=== PATIENT | female | born 1980 | race Two or more races ===

== ENCOUNTER 2024-08-03 13:36 | Inpatient (IN) | payer BC, OTHER ==
[~2024-08-03] VITALS: Ht 157.5 cm; Wt 103.0 kg
[2024-08-03 14:22] LABS: Basophils # (auto) 0.1 10 ^3/uL (0-0.2); Lymphocytes # (auto) 3.2 10 ^3/uL (0.4-5.4); Mean Corpuscular Volume 82.3 fL (80.0-100.0); Red Cell Distribution Width 16.6 % (11.8-14.3)
[2024-08-03 14:24] LABS: Basophils % (auto) 0.4 % (0.0-2.0); Eosinophils # (auto) 0.4 10 ^3/uL (0-0.8); Eosinophils % (auto) 2.5 % (0.0-7.0); Hematocrit 41.7 % (36.0-46.0); Hemoglobin 13.4 g/dL (12.2-16.2); Lymphocytes % (auto) 21.4 % (10.0-50.0); Mean Corpuscular Hemoglobin 26.3 pg (28.0-32.0); Monocytes # (auto) 0.8 10 ^3/uL (0-1.3); Monocytes % (auto) 5.3 % (0.0-12.0); Neutrophils # (auto) 10.5 10 ^3/uL (1.6-8.6); Neutrophils % (auto) 70.4 % (37.0-80.0); Platelet Count (auto) 347 10^3/uL (140-450); Red Blood Cells 5.07 10^6/uL (4.0-5.20)
[2024-08-03 14:40] LABS: Alanine Aminotransferase 13 U/L (7-40); Albumin 4.5 g/dL (3.2-4.8); Alkaline Phosphatase 87 U/L (46-116); Anion Gap 8 (5-15); BUN/Creatinine Ratio 7.4 (10.0-20.0); Calcium 10.2 mg/dL (8.7-10.4); Carbon Dioxide 28 mmol/L (20-31); Chloride 107 mmol/L (98-107); Glucose 93 mg/dL (74-106); Potassium 3.7 mmol/L (3.5-5.1); Sodium 143 mmol/L (136-145)
[2024-08-03 14:41] LABS: Bilirubin, Total 0.3 mg/dL (0.2-1.0); Total Protein 7.3 g/dL (5.7-8.2)
[2024-08-03 14:42] LABS: Aspartate Aminotransferase 10 U/L (13-40); Blood Urea Nitrogen 7 mg/dL (9-23)
--- NOTE | 2024-08-03 15:09 | ED.PDOC ---
GI ASSESSMENT HPI Comments A 44 YEAR OLD FEMALE PRESENTS TO THE ED WITH COMPLAINT OF GENERALIZED ABDOMINAL PAIN. PATIENT STATES SHE HAS BEEN EXPERIENCING GENERALIZED ABDOMINAL PAIN THAT RADIATES TO HER LOWER BACK WITH NAUSEA AND VOMITING FOR THE PAST 3 WEEKS. PATIENT NOTES SHE WENT TO A HOSPITAL IN [place] 3 WEEKS AGO FOR THIS COMPLAINT WHERE THEY DID A CT SCAN AND LABS AND WAS ADMITTED FOR "AN INFLAMMATORY DISEASE". PATIENT REPORTS SHE IS STILL EXPERIENCING ABDOMINAL PAIN AT THIS TIME AN WOULD LIKE TO BE EVALUATED AGAIN. NAUSEA AND VOMITING STOPPED AT THIS TIME. PATIENT DENIES DYSURIA, HEMATURIA, FLANK PAIN, FEVER, CHILLS, SHORTNESS OF BREATH, CHEST PAIN, NAUSEA, VOMITING, HEADACHE, OR OTHER COMPLAINTS. NO OTHER SYMPTOMS OR MODIFYING FACTORS AT THIS TIME. PATIENT IS ALERT, ORIENTED X 4, AND HAS STEADY GAIT. Chief Complaint: Abdominal Pain Time Seen by MD: 13:44 Reviewed Notes: Nurses Notes, Medications, Allergies Allergies: Coded Allergies: NO KNOWN ALLERGIES (Unverified , 08/03/24) Information Source: Patient Mode of Arrival: Ambulatory Timing: Weeks Duration: Intermittent Prehospital treatment: None Quality: Aching, Cramping Vomitus: None Stool: Normal Severity: Moderate Recent: None Recent Hx of: None Pain Location: Diffuse Modifying Factors: Nothing Associated sign and symptoms: Nausea, Vomiting, Abdominal Pain Past Medical History PAST MEDICAL HISTORY: Anemia, DM, High Lipids, HTN, Seizures Surgical History: Cholecystectomy MEDIA SPECIALIST History: No Pertinent MEDIA SPECIALIST History Family History Family History: Reviewed,noncontributory to illness Social History Smoker: Non-Smoker Alcohol: Denies ETOH Use Drugs: Denies Drug Use Lives In: Home Constitutional: denies: chills, diaphoresis, fatigue, fever, malaise, sweats, weakness, others EENTM: denies: blurred vision, double vision, ear bleeding, ear discharge, ear drainage, ear pain, ear ringing, eye pain, eye redness, hearing loss, mouth pain, mouth swelling, nasal discharge, nose bleeding, nose congestion, nose pain, photophobia, tearing, throat pain, throat swelling, voice changes, others Respiratory: denies: cough, hemoptysis, orthopnea, SOB at rest, shortness of breath, SOB with excertion, stridor, wheezing, others Cardiovascular: denies: chest pain, dizzy spells, diaphoresis, Dyspnea on exertion, edema, irregular heart beat, left arm pain, lightheadedness, palpitations, PND, syncope, others Gastrointestinal: reports: abdominal pain, nausea, vomiting; denies: abdomen distended, blood streaked bowels, constipated, diarrhea, dysphagia, difficulty swallowing, hematemesis, melena, poor appetite, poor fluid intake, rectal bleeding, rectal pain, others Genitourinary: denies: abnormal vagina bleeding, burning, dyspareunia, dysuria, flank pain, frequency, hematuria, incontinence, pain, , vagina discharge, urgency, others Neurological: denies: dizziness, fainting, headache, left sided numbness, left sided weakness, numbness, paresthesia, pre-existing deficit, right sided numbness, right sided weakness, seizure, speech problems, tingling, tremors, weakness, others Musculoskeletal: reports: back pain (LOWER BACK PAIN); denies: gout, joint pain, joint swelling, muscle pain, muscle stiffness, neck pain, others Integumetry: denies: bruises, change in color, change in hair/nails, dryness, laceration, lesions, lumps, rash, wounds, others Allergic/Immunocompromised: denies: Difficulty Healing, Frequent Infections, Hives, Itching, others Hematologic/Lymphatic: denies: anemia, blood clots, easy bleeding, easy bruising, swollen glands, others Endocrine: denies: excessive hunger, excessive sweating, excessive thirst, excessive urination, flushing, intolerance to cold, intolerance to heat, unexplained weight gain, unexplained weight loss, others Psychiatric: denies: anxiety, bipolar disorder, depression, hopeless, panic disorder, schizophrenia, sleepless, suicidal, others All Other Systems: Reviewed and Negative Physical Exam General Appearance: No Apparent Distress, Normal HEENT: Normal ENT Inspection, PERRL/EOMI, Pharynx Normal, TMs Normal Neck: Full Range of Motion, Non-Tender, Normal, Normal Inspection Respiratory: Chest Non-Tender, Lungs Clear, No Accessory Muscle Use, No Respiratory Distress, Normal Breath Sounds Cardiovascular: No Edema, No JVD, No Murmur, No Gallop, Normal Peripheral Pulses, Regular Rate/Rhythm Breast Exam: Deferred Gastrointestinal: Diffuse, Distended, Guarding, No Organomegaly, No Pulsatile Mass, Soft, Tenderness (AND MILD DISTENDED GENERAL ABD, WITH TENDERNESS AND GUARDING, NO REBOUND TENDERNESS. ) Genitalia: Deferred Pelvic: Deferred Rectal: Deferred Extremities: No calf tenderness, Normal capillary refill, Normal inspection, Normal range of motion, Non-tender, No pedal edema Musculoskeletal : Apperance: Normal Neurologic: Alert, principal database developer II-XII nml as Tested, No Motor Deficits, Normal Affect, Normal Mood, No Sensory Deficits Cerebellar Function: Normal Reflexes: Normal Skin: Dry, Normal Color, Warm Peripheral Pulses: 2+ carotid (R), 2+ carotid (L) Lymphatic: No Adenopathy Was a procedure done? Was a procedure done?: No GI differential Dx Differential Diagnosis: Appendicitis, Bowel Obstruction, Constipation, Diverticular disease, Gastritis/PUD, Pancreatitis, UTI, Kidney Stone X-Ray, Labs, Meds, VS Vital Signs Date Time Temp Pulse Resp B/P (MAP) Pulse Ox O2 Delivery O2 Flow Rate FiO2 08/03/24 15:42 76 16 154/76 (102) 96 08/03/24 15:41 76 18 154/76 08/03/24 15:10 98.5 85 17 179/101 (127) 96 98.5 08/03/24 15:10 85 17 96 Room Air 08/03/24 14:44 98.5 85 17 177/90 (119) 96 Lab Test 08/03/24 14:40 08/03/24 13:54 Range/Units Urine Color Yellow Yellow Urine Clarity Clear Clear Urine pH 5.5 5.0-9.0 Urine Specific [place] 1.043 H 1.001-1.035 Urine Protein 1+ H Negative Urine Ketones Trace Negative Urine Blood Negative Negative /uL Urine Nitrite Negative Negative Urine Bilirubin Negative Negative Urine Urobilinogen Normal Negative mg/dL Urine Leukocyte Esterase Negative Negative /uL Urine RBC 4 0 - 4 /hpf Urine WBC 1 0 - 5 /hpf Urine Squamous Epithelial Cells Few <5 /hpf Urine Bacteria Few H None Seen /hpf Urine Mucus Few None Seen Urine Glucose 4+ H Normal mg/dL Urine Opiates Screen Neg NEGATIVE Urine Fentanyl Screen Neg NEGATIVE Urine Barbiturates Screen Neg NEGATIVE Urine Phencyclidine Screen Pending Urine Amphetamines Screen Neg NEGATIVE Urine Benzodiazepines Screen Neg NEGATIVE Urine Cocaine Screen Neg NEGATIVE Urine Cannabinoids Screen Neg NEGATIVE White Blood Count 15.0 H 4.4-10.8 10^3/uL Red Blood Count 5.07 4.0-5.20 10^6/uL Hemoglobin 13.4 12.2-16.2 g/dL Hematocrit 41.7 36.0-46.0 % Mean Corpuscular Volume 82.3 80.0-100.0 fL Mean Corpuscular Hemoglobin 26.3 L 28.0-32.0 pg Mean Corpuscular Hemoglobin Concent 32.0 32.0-36.0 g/dL Red Cell Distribution Width 16.6 H 11.8-14.3 % Platelet Count 347 140-450 10^3/uL Mean Platelet Volume 8.7 6.9-10.8 fL Neutrophils (%) (Auto) 70.4 37.0-80.0 % Lymphocytes (%) (Auto) 21.4 10.0-50.0 % Monocytes (%) (Auto) 5.3 0.0-12.0 % Eosinophils (%) (Auto) 2.5 0.0-7.0 % Basophils (%) (Auto) 0.4 0.0-2.0 % Neutrophils # (Auto) 10.5 H 1.6-8.6 10 ^3/uL Lymphocytes # (Auto) 3.2 0.4-5.4 10 ^3/uL Monocytes # (Auto) 0.8 0-1.3 10 ^3/uL Eosinophils # (Auto) 0.4 0-0.8 10 ^3/uL Basophils # (Auto) 0.1 0-0.2 10 ^3/uL Nucleated Red Blood Cells 0.0 % Sodium Level 143 136-145 mmol/L Potassium Level 3.7 3.5-5.1 mmol/L Chloride Level 107 98-107 mmol/L Carbon Dioxide Level 28 20-31 mmol/L Anion Gap 8 5-15 Blood Urea Nitrogen 7 L 9-23 mg/dL Creatinine 0.95 0.550-1.02 mg/dL Glomerular Filtration Rate Calc 75 >90 mL/min BUN/Creatinine Ratio 7.4 L 10.0-20.0 Serum Glucose 93 74-106 mg/dL Calcium Level 10.2 8.7-10.4 mg/dL Total Bilirubin 0.3 0.2-1.0 mg/dL Aspartate Amino Transferase (AST) 10 L 13-40 U/L Alanine Aminotransferase (ALT) 13 7-40 U/L Alkaline Phosphatase 87 46-116 U/L Total Protein 7.3 5.7-8.2 g/dL Albumin 4.5 3.2-4.8 g/dL Lipase 67 H 12-53 U/L Current Medications Medications (Trade) Dose Ordered Sig/Antonietta Route Start Time Stop Time Status Last Admin Sodium Chloride 1,000 ml @ 1,000 mls/hr Q1H ONCE IV 08/03/24 16:15 08/03/24 17:14 DC 08/03/24 16:24 Exam: CT CT AB PEL WO CON-NO ORAL OR IV History: GENERAL ABD PAIN WITH N/V X 3WEEKS Comparison Study: None Technique: Multidetector spiral CT of the abdomen was performed from lung bases to pubic symphysis. Imaging was performed without IV contrast. Axial, coronal and sagittal multiplanar reformats were obtained from the axial data set by the technologist. Radiation Dose : 1. Abdomen/Pelvis: CTDIvol 23 mGy, DLP 1172.39 mGy*cm. Findings: Evaluation of solid organs is limited due to lack of intravenous contrast use. Lung Bases: No acute or significant lung base finding. Normal heart size. No pleural or pericardial effusion. Liver: The liver is normal in size. No focal lesions. Gallbladder and Biliary Tree: Gallbladder is surgically absent. Spleen: Unremarkable Pancreas: The pancreas is grossly normal in appearance. Adrenal Glands: Unremarkable Kidneys: Kidneys are grossly normal without calculi or hydronephrosis. Bladder: Grossly unremarkable for degree of distention. Bowel: The stomach is grossly normal in appearance. Minimal distension of multiple loops of small bowel in the left hemiabdomen may reflect focal ileus versus low-grade small bowel obstruction. No discrete transition point is identified. Normal appendix is visualized in the right lower quadrant without findings of appendicitis. Ascites: Absent Lymphadenopathy: No mesenteric, retroperitoneal or periportal lymphadenopathy. Abdominal Wall and Mesentery: Unremarkable. Vasculature: The visualized abdominal aorta is normal in size and caliber. Evaluation of abdominal and pelvic vessels is limited due to lack of intravenous contrast. Pelvic Organs: Unremarkable Musculoskeletal: No aggressive focal bony lesions, acute fractures or dislocation. IMPRESSION: 1. Minimal distension of a few loops of small bowel in the left hemiabdomen may reflect focal ileus versus low-grade small bowel obstruction. Radiation optimization: All CT scans at this facility use at least one of these dose optimization techniques: automated exposure control mA and/or kV adjustment per patient size (includes targeted exams where dose is matched to clinical indication) or iterative reconstruction. ATED BY: RHIANNA LUJAN MD DICTATED DATE/TIME: 08/03/241603 SIGNED BY: RHIANNA LUJAN MD SIGNED DATE/TIME: 08/03/241603 CC: X-Ray, Labs, Meds, VS Comment EXTERNAL NOTES: NONE LABS ORDERED: CBC, CMP, LIPASE, UA, UDS REVIEWED AND INTERPRETED RESULTS: WBC 15.0, LIPASE 67, UGLU 4+ IMAGING ORDERED: CT ABD/PEL INDEPENDENT HISTORIANS: NONE TREATMENTS ORDERED: NS 1 L IV, ZOFRAN 4 MG IV, MORPHINE 4 MG IV, ROCEPHIN 1 G IV PATIENT'S CASE AND RESULTS HAVE BEEN DISCUSSED WITH THE ED ATTENDING PHYSICIAN AND THEY AGREE WITH MY PLAN OF CARE. UPON MY PHYSICAL EXAMINATION, THE PATIENT HAD MILD DISTENDED ABD WITH GUARDING NOTED UPON PALPATION TO HER ABDOMEN, BUT NO REBOUND TENDERNESS NOTED UPON PALPATION AND WAS IN NO ACUTE DISTRESS AT THIS TIME. MY DIFFERENTIAL DIAGNOSIS INCLUDES, ACUTE APPENDICITIS, BOWEL OBSTRUCTION, PANCREATITIS, UTI, KIDNEY STONE, MUSCLE STRAIN. DUE TO THE PATIENT'S CT SCAN OF HER ABDOMEN AND PELVIS REVEALING POSSIBLE ILEUS VERSUS SMALL-BOWEL OBSTRUCTION, I HAVE DETERMINED THE PATIENT SHOULD BE ADMITTED FOR FURTHER TREATMENT AND EVALUATION. THE ON-CALL ADMITTING PHYSICIAN WILL BE CONTACTED FOR ADMISSION OF THIS PATIENT. Images Reviewed?: Images reviewed and evaluated by me Time of 1ST Reevaluation: 16:45 Reevaluation 1ST: Unchanged Patient Education/Counseling: Diagnosis, Treatment Family Education/Counseling: Diagnosis, Treatment Departure 1 Departure Time of Disposition: 16:45 Impression: Primary Impression: Small bowel obstruction Additional Impressions: Ileus Elevated lipase Disposition: ADMITTED INPATIENT Admit to: Med Surg Condition: Serious Critical Care Note Critical Care Time?: No Stability Stability form required: Yes Unstable for transfer: Requires medication, ED Physician Assesment, Possible rapid decline I personally scribed for GLENNY CAMACHO ([email or web address]) on 08/03/24 at 15:09. Electronically submitted by Isaias Ralph ([email or web address]). I personally scribed for GLENNY CAMACHO ([email or web address]) on 08/03/24 at 15:12. Electronically submitted by Isaias Ralph ([email or web address]). I personally scribed for GLENNY CAMACHO ([email or web address]) on 08/03/24 at 16:20. Electronically submitted by Isaias Ralph ([email or web address]). I personally scribed for GLENNY CAMACHO ([email or web address]) on 08/03/24 at 16:28. Electronically submitted by Isaias Ralph ([email or web address]). GLENNY CAMACHO Aug 03, 2024 15:09
[2024-08-03] MEDS: MORPHINE SULFATE 4 MG/ML SYR/VIAL IV ONE (15:41)
[2024-08-03] MEDS: ONDANSETRON HCL 4 MG/2 ML VIAL IV ONE (15:42)
[2024-08-03 15:54] LABS: Urine Bacteria FEW /hpf (None Seen); Urine Blood Negative /uL (Negative); Urine Clarity Clear (Clear); Urine Color Yellow (Yellow); Urine Mucus FEW (None Seen); Urine Protein, UAD 1+ (Negative); Urine Specific Gravity 1.043 (1.001-1.035); Urine Urobilinogen Normal (Negative); Urine WBC 1 /hpf (0 - 5); Urine pH 5.5 (5.0-9.0)
[2024-08-03 16:04] LABS: Amphetamine Screen, Urine Neg (NEGATIVE); Barbiturate Scree,Urine Neg (NEGATIVE); Benzodiazephine Screen, Urine Neg (NEGATIVE); Cannabinoid Screen, Urine Neg (NEGATIVE); Cocaine Screen, Urine Neg (NEGATIVE); Opiate Scree,Urine Neg (NEGATIVE)
--- NOTE | 2024-08-03 16:06 | DVH ---
Exam: CT CT AB PEL WO CON-NO ORAL OR IV History: GENERAL ABD PAIN WITH N/V X 3WEEKS Comparison Study: None Technique: Multidetector spiral CT of the abdomen was performed from lung bases to pubic symphysis. Imaging was performed without IV contrast. Axial, coronal and sagittal multiplanar reformats were ob tained from the axial data set by the technologist. Radiation Dose : 1. Abdomen/Pelvis: CTDIvol 23 mGy, DLP 1172.39 mGy*cm. Findings: Evaluation of solid organs is limited due to lack of intravenous contrast use. Lung Bases: No acute or significant lung base finding. Normal heart size. No pleural or pericardial effusion. Liver: The liver is normal in size. No focal lesions. Gallbladder and Biliary Tree: Gallbladder is surgically absent. Spleen: Unremarkable Pancreas: The pancreas is grossly normal in appearance. Adrenal Glands: Unremarkable Kidneys: Kidneys are grossly normal without calculi or hydronephrosis. Bladder: Grossly unremarkable for degree of distention. Bowel: The stomach is grossly normal in appearance. Minimal distension of multiple loops of small bow el in the left hemiabdomen may reflect focal ileus versus low-grade small bowel obstruction. No discr ete transition point is identified. Normal appendix is visualized in the right lower quadrant withou t findings of appendicitis. Ascites: Absent Lymphadenopathy: No mesenteric, retroperitoneal or periportal lymphadenopathy. Abdominal Wall and Mesentery: Unremarkable. Vasculature: The visualized abdominal aorta is normal in size and caliber. Evaluation of abdominal a nd pelvic vessels is limited due to lack of intravenous contrast. Pelvic Organs: Unremarkable Musculoskeletal: No aggressive focal bony lesions, acute fractures or dislocation. IMPRESSION: 1. Minimal distension of a few loops of small bowel in the left hemiabdomen may reflect focal ileus v ersus low-grade small bowel obstruction. Radiation optimization: All CT scans at this facility use at least one of these dose optimization freddy hniques: automated exposure control mA and/or kV adjustment per patient size (includes targeted exam s where dose is matched to clinical indication) or iterative reconstruction.
[2024-08-03] MEDS: SODIUM CHLORIDE 0.9% 1,000 ML IV ONE (16:24)
[2024-08-03] MEDS: cefTRIAXone 1GM/50ML D5W 50 ML IV ONE (16:30)
--- NOTE | 2024-08-03 17:09 | DVHHP2 ---
History of Present Illness Reason for Visit: Abdominal pain History of Present Illness Mayra Womack is a 44-year-old female with past medical history of diabetes, hyperlipidemia, seizures, iron deficiency, and depression who presents to the ED for abdominal pain, nausea, and vomiting x 3 weeks. Patient reports that she chou d gone to a hospital in [place] few weeks ago where they did a CT scan and she was admitted and was discharged. Patient reports she is still experiencing the same abdominal pain and would like to be evaluated here. Patient reports that she has bowel movements daily, last was yesterday and her stools have been pebble like. Patient denies any flank pain, fever, chills, shortness of breath, chest pain, and headaches. Cardiovascular: hyperipidemia Heme/Onc: Iron deficiency Anemia Psych: Depression Endocrine: Diabetes Past Surgical History: Cholecystectomy, Family History: None Smoke: No ALCOHOL: none Drugs: None Lives: with Family Domestic Violence: Neg Review of Systems Constitutional: No: Fever, Chills, Sweats, Weakness, Malaise, Other Eyes: No: Pain, Vision change, Conjunctivae inflammation, Eyelid inflammation, Other, Redness ENT: No: Ear pain, Ear discharge, Nose pain, Nose discharge, Nose congestion, Mouth pain, Mouth swelling, Throat pain, Throat swelling, Other Respiratory: No: Cough, Dry, Shortness of breath, SOB with excertion, Wheezing, Hemoptysis, Pleuritic Pain, Sputum, Wheezing, Other Cardiovascular: No: Chest Pain, Palpitations, Orthopnea, Paroxysmal Noc. Dyspnea, Edema, Lt Headedness, Other Gastrointestinal: Nausea, Vomiting, Abdominal Pain; No: Diarrhea, Constipation, Melena, Hematochezia, Other Genitourinary: No Dysuria, No Frequency, No Incontinence, No Hematuria, No Retention, No Other Musculoskeletal: No: other, neck pain, shoulder pain, arm pain, back pain, hand pain, leg pain, foot pain Skin: No: Rash, Lesions, Jaundice, Bruising, Other Neurological: No: Weakness, Numbness, Incoordination, Change in speech, Confusion, Seizures, Other Allergies: Coded Allergies: NO KNOWN ALLERGIES (Unverified , 08/03/24) Medications Current Medications Medications Dose Ordered Sig/[place] Route Start Time Stop Time Status Last Admin Dose Admin Hydralazine HCl 10 mg Q6HP PRN IV 08/03/24 17:00 UNV Exam Vital Signs Vital Signs Date Time Temp Pulse Resp B/P (MAP) Pulse Ox O2 Delivery O2 Flow Rate FiO2 08/03/24 15:42 76 16 154/76 (102) 96 08/03/24 15:10 98.5 98.5 08/03/24 15:10 Room Air General Appearance: Alert, Oriented X3, Cooperative, No acute distress HEENT: Atraumatic, PERRLA, EOMI, Mucous membr. moist/pink Respiratory: Clear to auscultation, Normal air movement Cardiovascular: Regular rate, Normal S1, Normal S2, No murmurs Abdominal: Soft Extremities: No clubbing, No cyanosis, No edema, Normal pulses, No tenderness/swelling Skin: No rashes, No breakdown, No significant lesion Neuro: Normal gait, Normal speech, Strength at 5/5 X4 ext, Normal tone, Sensation intact Psych/Mental Status: Mental status NL, Mood NL Labs/Xrays Labs Test 08/03/24 14:40 08/03/24 13:54 Range/Units Urine Color Yellow Yellow Urine Clarity Clear Clear Urine pH 5.5 5.0-9.0 Urine Specific [place] 1.043 H 1.001-1.035 Urine Protein 1+ H Negative Urine Ketones Trace Negative Urine Blood Negative Negative /uL Urine Nitrite Negative Negative Urine Bilirubin Negative Negative Urine Urobilinogen Normal Negative mg/dL Urine Leukocyte Esterase Negative Negative /uL Urine RBC 4 0 - 4 /hpf Urine WBC 1 0 - 5 /hpf Urine Squamous Epithelial Cells Few <5 /hpf Urine Bacteria Few H None Seen /hpf Urine Mucus Few None Seen Urine Glucose 4+ H Normal mg/dL Urine Opiates Screen Neg NEGATIVE Urine Fentanyl Screen Neg NEGATIVE Urine Barbiturates Screen Neg NEGATIVE Urine Amphetamines Screen Neg NEGATIVE Urine Benzodiazepines Screen Neg NEGATIVE Urine Cocaine Screen Neg NEGATIVE Urine Cannabinoids Screen Neg NEGATIVE White Blood Count 15.0 H 4.4-10.8 10^3/uL Red Blood Count 5.07 4.0-5.20 10^6/uL Hemoglobin 13.4 12.2-16.2 g/dL Hematocrit 41.7 36.0-46.0 % Mean Corpuscular Volume 82.3 80.0-100.0 fL Mean Corpuscular Hemoglobin 26.3 L 28.0-32.0 pg Mean Corpuscular Hemoglobin Concent 32.0 32.0-36.0 g/dL Red Cell Distribution Width 16.6 H 11.8-14.3 % Platelet Count 347 140-450 10^3/uL Mean Platelet Volume 8.7 6.9-10.8 fL Neutrophils (%) (Auto) 70.4 37.0-80.0 % Lymphocytes (%) (Auto) 21.4 10.0-50.0 % Monocytes (%) (Auto) 5.3 0.0-12.0 % Eosinophils (%) (Auto) 2.5 0.0-7.0 % Basophils (%) (Auto) 0.4 0.0-2.0 % Neutrophils # (Auto) 10.5 H 1.6-8.6 10 ^3/uL Lymphocytes # (Auto) 3.2 0.4-5.4 10 ^3/uL Monocytes # (Auto) 0.8 0-1.3 10 ^3/uL Eosinophils # (Auto) 0.4 0-0.8 10 ^3/uL Basophils # (Auto) 0.1 0-0.2 10 ^3/uL Nucleated Red Blood Cells 0.0 % Sodium Level 143 136-145 mmol/L Potassium Level 3.7 3.5-5.1 mmol/L Chloride Level 107 98-107 mmol/L Carbon Dioxide Level 28 20-31 mmol/L Anion Gap 8 5-15 Blood Urea Nitrogen 7 L 9-23 mg/dL Creatinine 0.95 0.550-1.02 mg/dL Glomerular Filtration Rate Calc 75 >90 mL/min BUN/Creatinine Ratio 7.4 L 10.0-20.0 Serum Glucose 93 74-106 mg/dL Calcium Level 10.2 8.7-10.4 mg/dL Total Bilirubin 0.3 0.2-1.0 mg/dL Aspartate Amino Transferase (AST) 10 L 13-40 U/L Alanine Aminotransferase (ALT) 13 7-40 U/L Alkaline Phosphatase 87 46-116 U/L Total Protein 7.3 5.7-8.2 g/dL Albumin 4.5 3.2-4.8 g/dL Lipase 67 H 12-53 U/L Exam: CT CT AB PEL WO CON-NO ORAL OR IV History: GENERAL ABD PAIN WITH N/V X 3WEEKS Findings: Evaluation of solid organs is limited due to lack of intravenous contrast use. Lung Bases: No acute or significant lung base finding. Normal heart size. No pleural or pericardial effusion. Liver: The liver is normal in size. No focal lesions. Gallbladder and Biliary Tree: Gallbladder is surgically absent. Spleen: Unremarkable Pancreas: The pancreas is grossly normal in appearance. Adrenal Glands: Unremarkable Kidneys: Kidneys are grossly normal without calculi or hydronephrosis. Bladder: Grossly unremarkable for degree of distention. Bowel: The stomach is grossly normal in appearance. Minimal distension of multiple loops of small bowel in the left hemiabdomen may reflect focal ileus versus low-grade small bowel obstruction. No discrete transition point is identified. Normal appendix is visualized in the right lower quadrant without findings of appendicitis. Ascites: Absent Lymphadenopathy: No mesenteric, retroperitoneal or periportal lymphadenopathy. Abdominal Wall and Mesentery: Unremarkable. Vasculature: The visualized abdominal aorta is normal in size and caliber. Evaluation of abdominal and pelvic vessels is limited due to lack of intravenous contrast. Pelvic Organs: Unremarkable Musculoskeletal: No aggressive focal bony lesions, acute fractures or dislocation. IMPRESSION: 1. Minimal distension of a few loops of small bowel in the left hemiabdomen may reflect focal ileus versus low-grade small bowel obstruction. Assessment/Plan Assessment/Plan Assessment: Rule out ileus versus small-bowel obstruction Hyperlipasemia Leukocytosis Glucosuria Hx of DM HLD SZ Iron deficiency Depression Plan: Admit to med surg Gen surg cx IV fluids Pain management IV antibiotics Antiemetics CT A/P ISS and Accuchecks HgbA1C Monitor labs UA UDS Home medications reconciled Plan discussed with: Patient My Orders Orders - LEIDY HILL Procedure Category Date Status Time Hydralazine Injection PHA 08/03/24 Logged (Apresoline Inject 17:00 Date of Service: Aug 03, 2024 Billing Provider: LEIDY HILL Common Visit Codes: 11826-[facility] INP/OBS CARE (MOD) LEIDY HILL Aug 03, 2024 17:09
[2024-08-03] MEDS ORDERED: DEXTROSE (50%) 50ML SYRG IV PRN (17:30)
[2024-08-03] MEDS: SODIUM CHLORIDE 0.9% 1,000 ML IV SCH (17:30)
[2024-08-03] MEDS ORDERED: DOCUSATE SOD 100 MG CAP PO PRN (17:30)
[2024-08-03] MEDS ORDERED: ACETAMINOPHEN 325 MG TAB PO PRN (17:30)
[2024-08-03] MEDS ORDERED: PARO10TA93 PO (17:32)
[2024-08-03] MEDS ORDERED: LEVE750T3 PO (17:32)
[2024-08-03] MEDS ORDERED: DAPA1TAB7 PO (17:32)
[2024-08-03] MEDS ORDERED: FERR325T20 PO (17:32)
[2024-08-03] MEDS ORDERED: METO-289 PO (17:32)
[2024-08-03] MEDS ORDERED: ATOR20TA50 PO (17:32)
[2024-08-03] MEDS: InsuLIN REG 1unit/0.01ml Soln (100units/ml) SC SCH (17:57)
[2024-08-03] MEDS: ACCU-CHEK COMFORT CURVE STRIP VI SCH (17:57)
[2024-08-03] MEDS: metroNIDAZOLE 500MG/100ML 100 ML IV ONE (18:11)
[2024-08-03 19:13] LABS: Phencyclidine Screen, Urine Neg (NEGATIVE)
[2024-08-03 20:02] VITALS: PULSE 77; RESP 16; O2SAT 98
[2024-08-03] MEDS: HYDROcodone-ACET 5/325MG TAB PO PRN (21:03)
[2024-08-03] MEDS: metroNIDAZOLE 500MG/100ML 100 ML IV SCH (22:14)
[2024-08-04] MEDS: ONDANSETRON HCL 4 MG/2 ML VIAL IV PRN (06:37)
[2024-08-04] MEDS: MORPHINE SULFATE INJ 2 MG/ml SYRG IV PRN (06:37)
[2024-08-04] MEDS: levETIRAcetam 500 mg/100ml 100 ML IV ONE (06:54)
[2024-08-04 08:30] LABS: Basophils # (auto) 0 10 ^3/uL (0-0.2); Basophils % (auto) 0.4 % (0.0-2.0); Eosinophils # (auto) 0.3 10 ^3/uL (0-0.8); Eosinophils % (auto) 2.3 % (0.0-7.0); Hematocrit 38.7 % (36.0-46.0); Hemoglobin 12.2 g/dL (12.2-16.2); Lymphocytes # (auto) 2.5 10 ^3/uL (0.4-5.4); Lymphocytes % (auto) 21.9 % (10.0-50.0); Mean Corpuscular Hemoglobin 25.8 pg (28.0-32.0); Mean Corpuscular Hgb Conc. 31.4 g/dL (32.0-36.0); Mean Corpuscular Volume 82.3 fL (80.0-100.0); Monocytes # (auto) 0.6 10 ^3/uL (0-1.3); Monocytes % (auto) 5.5 % (0.0-12.0); Neutrophils # (auto) 7.9 10 ^3/uL (1.6-8.6); Neutrophils % (auto) 69.9 % (37.0-80.0); Platelet Count (auto) 277 10^3/uL (140-450); Red Blood Cells 4.71 10^6/uL (4.0-5.20); Red Cell Distribution Width 16.3 % (11.8-14.3); White Blood Cell 11.3 10^3/uL (4.4-10.8)
[2024-08-04 08:42] LABS: Alanine Aminotransferase 12 U/L (7-40); Albumin 4.1 g/dL (3.2-4.8); Alkaline Phosphatase 76 U/L (46-116); Anion Gap 8 (5-15); Aspartate Aminotransferase 13 U/L (13-40); BUN/Creatinine Ratio 8.6 (10.0-20.0); Bilirubin, Total 0.5 mg/dL (0.2-1.0); Calcium 9.3 mg/dL (8.7-10.4); Carbon Dioxide 25 mmol/L (20-31); Chloride 107 mmol/L (98-107); Glucose 88 mg/dL (74-106); Potassium 4.4 mmol/L (3.5-5.1); Sodium 140 mmol/L (136-145); Total Protein 6.2 g/dL (5.7-8.2)
[2024-08-04 08:52] LABS: Blood Urea Nitrogen 6 mg/dL (9-23); Lipase 284 U/L (12-53)
[2024-08-04 09:09] LABS: Blood Alcohol 3.5 mg/dL (<10); Magnesium 1.6 mg/dL (1.6-2.6)
[2024-08-04 09:15] LABS: INR 1.01 (0.9-1.15); Partial Thromboplastin Time 26.8 SEC (24.5-34.5); Prothrombin Time 10.7 sec (9.3-11.8)
[2024-08-04 09:26] VITALS: PULSE 78; RESP 15; O2SAT 96
--- NOTE | 2024-08-04 09:59 | DVHPNRES ---
Progress Note Date Seen: Aug 04, 2024 Resident Creating Document: CELESTINO MONIQUE RESIDENT Medical Necessity Reason Pt with a Central, PICC or Fol: No Subjective Review of Systems Hugo GREENBERG a 44-year-old female with PMH of type 2 DM, HLD, seizures, iron-deficiency anemia, depression presented to the ED with the chief complaints of intermittent upper abdominal pain for 3-4 weeks. Patient reported patient has been having intermittent upper abdominal pain more towards right-sided which is sharp, 7 to 8/10, nonradiating, no aggravating, no relieving factors but associated with occasional nausea, vomitus without blood and sometimes burning throat. Patient reported she does have loose stools all the times which is not related to this. On my assessment patient denies fever, chest pain, diaphoresis, shortness of breath, palpitations, dizziness, hematemesis, and other acute associated symptoms. Patient reported her last bowel movement was 2 days ago and she did not remember that she had passed gas. Distal end PMH: type 2 DM, HLD, seizures, iron-deficiency anemia, depression PSH: Cholecystectomy, x2 Family history: HTN, type 2 DM, H of in father and HTN, DM in mom Social history: Lives with family. Denies smoking, alcohol and other drug abuse Allergies: No known allergies Home medications: Metoprolol 50 mg, atorvastatin 20 mg, Keppra, paroxetine Patient seen and examined at the bedside. Patient reported improvement in her abdominal pain and reported no nausea, vomiting. No new complaints today. Currently on NPO. CT abdominal pelvis showed minimal distention of small-bowel loops in left hemiabdomen reflects likely focal ileus versus SBO. Currently on Flagyl and Rocephin resumed home medications. Ordered gastric emptying studies. Objective vital signs Vital Sign Date Time Temp Pulse Resp B/P (MAP) Pulse Ox O2 Delivery O2 Flow Rate FiO2 08/04/24 09:26 78 15 96 Room Air* 0 21 08/04/24 08:17 98.3 159/84 (109) 98.3 Total Intake and Output 08/03/24 08/03/24 08/04/24 15:00 23:00 07:00 Intake Total 1000 ml 100 ml Balance 1000 ml 100 ml medications Current Medications Medications Dose Ordered Sig/Antonietta Route Start Time Stop Time Status Last Admin Dose Admin Hydralazine HCl 10 mg Q6HP PRN IV 08/03/24 17:00 Sodium Chloride 1,000 ml @ 60 mls/hr [id number] IV 08/03/24 17:30 08/03/24 17:30 60 MLS/HR Acetaminophen/ Hydrocodone Bitart 1 tab Q4HP PRN PO 08/03/24 17:30 08/04/24 08:35 1 TAB Ondansetron HCl 4 mg Q4HP PRN IV 08/03/24 17:30 08/04/24 06:37 4 MG Docusate Sodium 100 mg BIDPRN PRN PO 08/03/24 17:30 Acetaminophen 650 mg Q6HP PRN PO 08/03/24 17:30 Morphine Sulfate 2 mg Q4HPRN PRN IV 08/03/24 17:30 08/04/24 06:37 2 MG Diagnostic Test (Pha) 1 strip Q6HR 08/03/24 18:00 08/04/24 06:00 1 STRIP Insulin Human Regular Q6HR SC 08/03/24 18:00 Dextrose 50 ml UD PRN IV 08/03/24 17:30 Metronidazole 100 ml @ 100 mls/hr Q8HR IV 08/03/24 22:00 08/04/24 06:01 100 MLS/HR Levetiracetam 500 mg BID PO 08/04/24 10:00 Atorvastatin Calcium 20 mg DAILY PO 08/04/24 10:00 Metoprolol Succinate 50 mg DAILY PO 08/04/24 10:00 Ceftriaxone Sodium 50 ml @ 100 mls/hr DAILY@09 IV 08/05/24 09:00 UNV Pantoprazole Sodium 40 mg DAILY IV 08/04/24 10:00 UNV Examination Pt is lying on bed General Appearance: Alert, Oriented X3, Cooperative, mild distress HEENT: Atraumatic, Mucous membranes moist/pink Respiratory: Clear to auscultation, Normal air movement, No added sounds Cardiovascular: Regular rate, Normal S1, Normal S2, No murmurs Abdominal: Hypoactive bowel sounds, mild RUQ and epigastric tenderness, Soft, no distention Extremities: No edema, Normal pulses, No tenderness/swelling Skin: No Significant rash, except past surgical scars Neuro: Normal speech, sensorimotor deficits none Psych/Mental Status: Mental status NL, Mood NL Nurse was there as sharperone during examination laboratory and microbiology Laboratory Tests 08/04/24 07:45 Test 08/04/24 07:45 Range/Units Serum Glucose 88 74-106 mg/dL Labs and/or images reviewed: Labs reviewed by me, Image(s) reviewed by me Problem List/Assessment/Plan Problem List/Assessment/Plan # abdominal pain likely due to focal ileus vs SBO vs enteritis # elevated leukocytosis; suspected sepsis # ? Pancreatitis - monitor lab, elevated lipase - Currently NPO - currently on pain management and Zofran as needed - receiving Protonix, Rocephin and Flagyl - CT abdominal pelvis showed minimal distention of small-bowel loops in left hemiabdomen reflects likely focal ileus versus SBO - consulted surgeon for further evaluation -ordered gastric emptying studies -consulted GI and surgery # history of seizures - continue Keppra as prescribed - monitor # depression without suicidal or homicidal intentions - continue paroxetine # hyperlipidemia - Lipitor 20 mg - advised healthy lifestyle modifications diet and exercise # type 2 DM with HbA1c 5.9 - continuously monitored and mild ISS No VTE PPX Protonix To keep NPO Reconciled home meds Goals of care discussed with the patient for 20 minutes: Full code status Case management discussed with Dr. Norman, patient and nurse Plan discussed with: Patient, Other (RN) My Orders My Orders Orders - CELESTINO MONIQUE RESIDENT Procedure Category Date Status Time Vitamin D, 25-Hydroxy LAB 08/04/24 In Process 08:25 Vitamin B12 LAB 08/04/24 In Process 08:25 Atorvastatin (Lipitor) PHA 08/04/24 In Process 10:00 Metoprolol Xl PHA 08/04/24 In Process Succinate (Toprol Xl) 10:00 Acute Hepatitis Panel LAB 08/04/24 Logged 09:50 Stool Occult Blood LAB 08/04/24 Logged 09:50 Ceftriaxone 1gm/50ml PHA 08/05/24 Logged D5w (Rocephin) 09:00 Pantoprazole PHA 08/04/24 Logged (Protonix) 10:00 Addendum Addendum Addendum I was physically present for the [place] portions of the service provided to patient by THE RESIDENT. I have reviewed the documentation, discussed the case with resident and agree with the resident's documentation except as noted. Also the patient's clinical case was discussed with the patient's nurse. This medical document was created using an electronic medical record system with computerized dictation system. Although this document has been carefully reviewed, there might still be some phonetic and typographical errors. These areas are purely typographical due to imperfections of the software programs, and do not reflect any compromise in the patient's medical care. Late signature. Date of Service: Aug 04, 2024 Billing Provider: ANIBAL NORMAN MD Common Visit Codes: [id number] INP/OBS CARE(HIGH) Secondary Visit Codes: [id number] CARE PLAN 30 MINUTES (20 minutes) CELESTINO MONIQUE RESIDENT Aug 04, 2024 09:59 ANIBAL NORMAN MD Aug 05, 2024 12:55
[2024-08-04] MEDS: METOPROLOL SUCCINATE XL 50 MG TAB PO SCH (10:25)
[2024-08-04] MEDS: levETIRAcetam 500 MG TAB PO SCH (10:25)
[2024-08-04] MEDS: ATORVASTATIN 20 MG TAB PO SCH (10:25)
[2024-08-04] MEDS: PANTOPRAZOLE 40 MG/10 ML VIAL INJ IV SCH (10:40)
[2024-08-04] MEDS: cefTRIAXone 1GM/50ML D5W 50 ML IV SCH (10:40)
[2024-08-04] MEDS: hydrALAZINE HCL 20 MG/ML VL IV PRN (13:14)
[2024-08-04 16:30] VITALS: BP 196/109; PULSE 82; RESP 16; TEMP 97.5; O2SAT 98
[2024-08-04] MEDS ORDERED: hydrALAZINE HCL 20 MG/ML VL IV ONE (16:45)
[2024-08-04] MEDS: hydrALAZINE HCL 20 MG/ML VL IV ONE (17:03)
[2024-08-04 21:00] VITALS: BP 179/97; PULSE 88; RESP 18; TEMP 98.3; O2SAT 100
[2024-08-04] MEDS: METOCLOPRAMIDE HCL 5MG/ml INJ 2ml VIAL IV PRN (23:20)
[2024-08-04] MEDS: HYDROmorphone HCL 2 MG/ML VL/or syr IV ONE (23:21)
[2024-08-05 05:00] VITALS: BP 125/66; PULSE 80; RESP 18; TEMP 98.2; O2SAT 96
[2024-08-05 07:26] LABS: Calcium 9.8 mg/dL (8.7-10.4)
[2024-08-05 07:28] LABS: Potassium 3.7 mmol/L (3.5-5.1); Sodium 140 mmol/L (136-145)
[2024-08-05 07:29] LABS: Basophils # (auto) 0 10 ^3/uL (0-0.2); Basophils % (auto) 0.2 % (0.0-2.0); Eosinophils # (auto) 0.1 10 ^3/uL (0-0.8); Eosinophils % (auto) 0.6 % (0.0-7.0); Lymphocytes % (auto) 14.6 % (10.0-50.0); Mean Corpuscular Hemoglobin 25.7 pg (28.0-32.0); Mean Corpuscular Hgb Conc. 31.6 g/dL (32.0-36.0); Mean Corpuscular Volume 81.4 fL (80.0-100.0); Monocytes # (auto) 0.8 10 ^3/uL (0-1.3); Monocytes % (auto) 6.1 % (0.0-12.0); Neutrophils # (auto) 10.6 10 ^3/uL (1.6-8.6); Neutrophils % (auto) 78.5 % (37.0-80.0); Platelet Count (auto) 292 10^3/uL (140-450); Red Blood Cells 4.67 10^6/uL (4.0-5.20); Red Cell Distribution Width 16.9 % (11.8-14.3); White Blood Cell 13.5 10^3/uL (4.4-10.8)
[2024-08-05 07:32] LABS: Carbon Dioxide 27 mmol/L (20-31); Glucose 98 mg/dL (74-106)
[2024-08-05 07:41] LABS: BUN/Creatinine Ratio 6.5 (10.0-20.0); Blood Urea Nitrogen < 5 mg/dL (9-23)
[2024-08-05 07:42] LABS: Anion Gap 5 (5-15); Chloride 108 mmol/L (98-107)
[2024-08-05 09:00] VITALS: BP 144/84; PULSE 89; RESP 17; TEMP 98.2; O2SAT 97
[2024-08-05 09:38] LABS: Hepatitis B Surface Antigen Negative (Negative)
[2024-08-05 09:59] LABS: Hepatitis A Ab IgM Negative
[2024-08-05 10:00] LABS: Hepatitis B Core IgM Negative (Negative); Hepatitis C Antibody Negative (Negative)
[2024-08-05] MEDS ORDERED: GASTROGRAFIN 120 ML SOL ONE (10:53)
[2024-08-05 13:00] VITALS: BP 161/86; PULSE 93; RESP 17; TEMP 98.7; O2SAT 98
--- NOTE | 2024-08-05 14:40 | DVH ---
Procedure: XY SMALL BOWEL SERIES-W GASTROGRA Reason for study/Clinical History: r/o sbo Comparison Study: None available at time of dictation. Technique: Single contrast small bowel series performed. FINDINGS/IMPRESSION: Initial employee communications specialist view of the abdomen and pelvis appears demonstrates no acute process. Contrast is identified within the colon by 3 hours. This represents a normal small bowel transit aditya hays
--- NOTE | 2024-08-05 16:39 | DVHINCON2 ---
Date of service: Aug 05, 2024 Family History: Diabetes mellitus G8 MOTHER G8 FATHER Allergies: Coded Allergies: NO KNOWN ALLERGIES (Unverified , 08/03/24) Home Meds Reported Medications Dapagliflozin-Metformin HCl (Xigduo Xr 5-1000 mg) 1 Tab Tab, 1 TAB PO BID 08/03/24 Atorvastatin Calcium (ATORVASTATIN CALCIUM) 20 Mg Tab, 1 TAB PO DAILY 08/03/24 Ferrous Sulfate (Ferosul) 325 Mg Tab, 1 TAB PO DAILY 08/03/24 Metoprolol Succinate (Metoprolol Succinate Er) 50 Mg Tab, 1 TAB PO DAILY 08/03/24 Levetiracetam (Levetiracetam) 750 Mg Tab, 1 TAB PO BID 08/03/24 Paroxetine Hydrochloride (Paroxetine Hydrochloride) 10 Mg Tab, 1 TAB PO DAILY 08/03/24 Current Medications Current Medications Medications (Trade) Dose Ordered Sig/Antonietta Route PRN Reason Start Time Stop Time Status Last Admin Metoclopramide HCl (Reglan Injection) 5 mg Q6HPRN PRN IV NAUSEA / VOMITING 08/04/24 22:45 08/04/24 23:20 Vital Signs Vital Signs Date Time Temp Pulse Resp B/P (MAP) Pulse Ox O2 Delivery O2 Flow Rate FiO2 08/05/24 15:01 80 16 162/90 08/05/24 13:00 98.7 98 98.7 08/05/24 08:00 Room Air* 0 21 Labs/Diagnostic Data Labs Test 08/05/24 12:38 08/05/24 08:53 08/05/24 06:10 08/04/24 07:45 Range/Units POC Glucose 102 70-106 mg/dl Lactic Acid Level 1.8 0.4-2.0 mmol/L White Blood Count 13.5 H 4.4-10.8 10^3/uL Red Blood Count 4.67 4.0-5.20 10^6/uL Hemoglobin 12.0 L 12.2-16.2 g/dL Hematocrit 38.0 36.0-46.0 % Mean Corpuscular Volume 81.4 80.0-100.0 fL Mean Corpuscular Hemoglobin 25.7 L 28.0-32.0 pg Mean Corpuscular Hemoglobin Concent 31.6 L 32.0-36.0 g/dL Red Cell Distribution Width 16.9 H 11.8-14.3 % Platelet Count 292 140-450 10^3/uL Mean Platelet Volume 9.1 6.9-10.8 fL Neutrophils (%) (Auto) 78.5 37.0-80.0 % Lymphocytes (%) (Auto) 14.6 10.0-50.0 % Monocytes (%) (Auto) 6.1 0.0-12.0 % Eosinophils (%) (Auto) 0.6 0.0-7.0 % Basophils (%) (Auto) 0.2 0.0-2.0 % Neutrophils # (Auto) 10.6 H 1.6-8.6 10 ^3/uL Lymphocytes # (Auto) 2.0 0.4-5.4 10 ^3/uL Monocytes # (Auto) 0.8 0-1.3 10 ^3/uL Eosinophils # (Auto) 0.1 0-0.8 10 ^3/uL Basophils # (Auto) 0 0-0.2 10 ^3/uL Nucleated Red Blood Cells 0.0 % Sodium Level 140 136-145 mmol/L Potassium Level 3.7 3.5-5.1 mmol/L Chloride Level 108 H 98-107 mmol/L Carbon Dioxide Level 27 20-31 mmol/L Anion Gap 5 5-15 Blood Urea Nitrogen < 5 L 9-23 mg/dL Creatinine 0.77 0.550-1.02 mg/dL Glomerular Filtration Rate Calc 97 >90 mL/min BUN/Creatinine Ratio 6.5 L 10.0-20.0 Serum Glucose 98 74-106 mg/dL Calcium Level 9.8 8.7-10.4 mg/dL Lipase 52 12-53 U/L Hepatitis A IgM Antibody Negative Hepatitis B Surface Antigen Negative Negative Hepatitis B Core IgM Antibody Negative Negative Hepatitis C Antibody Negative Negative Prothrombin Time 10.7 9.3-11.8 sec Prothrombin Time INR 1.01 0.9-1.15 Activated Partial Thromboplast Time 26.8 24.5-34.5 SEC Magnesium Level 1.6 1.6-2.6 mg/dL Total Bilirubin 0.5 0.2-1.0 mg/dL Aspartate Amino Transferase (AST) 13 13-40 U/L Alanine Aminotransferase (ALT) 12 7-40 U/L Alkaline Phosphatase 76 46-116 U/L Total Protein 6.2 5.7-8.2 g/dL Albumin 4.1 3.2-4.8 g/dL Vitamin B12 Level 210 L 211-911 pg/mL Vitamin D 25-Hydroxy 19.7 L 30.0-100 ng/mL Thyroid Stimulating Hormone (TSH) 2.12 0.55-4.78 uIU/mL Plasma/Serum Blood Alcohol 3.5 <10 mg/dL Test 08/03/24 14:40 08/03/24 13:54 Range/Units Urine Color Yellow Yellow Urine Clarity Clear Clear Urine pH 5.5 5.0-9.0 Urine Specific [place] 1.043 H 1.001-1.035 Urine Protein 1+ H Negative Urine Ketones Trace Negative Urine Blood Negative Negative /uL Urine Nitrite Negative Negative Urine Bilirubin Negative Negative Urine Urobilinogen Normal Negative mg/dL Urine Leukocyte Esterase Negative Negative /uL Urine RBC 4 0 - 4 /hpf Urine WBC 1 0 - 5 /hpf Urine Squamous Epithelial Cells Few <5 /hpf Urine Bacteria Few H None Seen /hpf Urine Mucus Few None Seen Urine Glucose 4+ H Normal mg/dL Urine Opiates Screen Neg NEGATIVE Urine Fentanyl Screen Neg NEGATIVE Urine Barbiturates Screen Neg NEGATIVE Urine Phencyclidine Screen Neg NEGATIVE Urine Amphetamines Screen Neg NEGATIVE Urine Benzodiazepines Screen Neg NEGATIVE Urine Cocaine Screen Neg NEGATIVE Urine Cannabinoids Screen Neg NEGATIVE Hemoglobin A1c 5.9 H <5.7 % A1C Assessment [id number] AFEBRILE VSS ABD SOFT NON DISTENDED NON ACUTE RESOLVING SBO ILEUS CONSERVATIVE ALLOW CLEAR LIQUIDS Plan discussed with: Patient JONATHAN RUIZ MD Aug 05, 2024 16:39
--- NOTE | 2024-08-05 16:40 | DVHPNRES ---
Progress Note Date Seen: Aug 05, 2024 Resident Creating Document: CELESTINO MONIQUE RESIDENT Medical Necessity Reason Pt with a Central, PICC or Fol: No Subjective Review of Systems Hugo GREENBERG a 44-year-old female with PMH of type 2 DM, HLD, seizures, iron-deficiency anemia, depression presented to the ED with the chief complaints of intermittent upper abdominal pain for 3-4 weeks. Patient seen and examined at the bedside. patient reported improvement in her symptoms since admission. Today small-bowel series done, showed no acute process. After the small-bowel series patient passed stools. Objective vital signs Vital Sign Date Time Temp Pulse Resp B/P (MAP) Pulse Ox O2 Delivery O2 Flow Rate FiO2 08/05/24 15:01 80 16 162/90 08/05/24 13:00 98.7 98 98.7 08/05/24 08:00 Room Air* 0 21 Total Intake and Output 08/04/24 08/04/24 08/05/24 15:00 23:00 07:00 Intake Total 630 ml 160 ml 900 ml Balance 630 ml 160 ml 900 ml medications Current Medications Medications Dose Ordered Sig/Antonietta Route Start Time Stop Time Status Last Admin Dose Admin Hydralazine HCl 10 mg Q6HP PRN IV 08/03/24 17:00 08/05/24 12:34 10 MG Sodium Chloride 1,000 ml @ 60 mls/hr [id number] IV 08/03/24 17:30 08/05/24 04:18 60 MLS/HR Acetaminophen/ Hydrocodone Bitart 1 tab Q4HP PRN PO 08/03/24 17:30 08/04/24 22:05 1 TAB Ondansetron HCl 4 mg Q4HP PRN IV 08/03/24 17:30 08/04/24 20:45 4 MG Docusate Sodium 100 mg BIDPRN PRN PO 08/03/24 17:30 Acetaminophen 650 mg Q6HP PRN PO 08/03/24 17:30 Morphine Sulfate 2 mg Q4HPRN PRN IV 08/03/24 17:30 08/05/24 15:01 2 MG Diagnostic Test (Pha) 1 strip Q6HR 08/03/24 18:00 08/05/24 12:43 1 STRIP Insulin Human Regular Q6HR SC 08/03/24 18:00 08/04/24 23:29 3 UNITS Dextrose 50 ml UD PRN IV 08/03/24 17:30 Metronidazole 100 ml @ 100 mls/hr Q8HR IV 08/03/24 22:00 08/05/24 15:00 100 MLS/HR Levetiracetam 500 mg BID PO 08/04/24 10:00 08/05/24 09:57 500 MG Atorvastatin Calcium 20 mg DAILY PO 08/04/24 10:00 08/05/24 09:57 20 MG Metoprolol Succinate 50 mg DAILY PO 08/04/24 10:00 08/05/24 09:56 50 MG Ceftriaxone Sodium 50 ml @ 100 mls/hr DAILY@09 IV 08/04/24 10:00 08/05/24 09:57 100 MLS/HR Pantoprazole Sodium 40 mg DAILY IV 08/04/24 10:00 08/05/24 09:57 40 MG Metoclopramide HCl 5 mg Q6HPRN PRN IV 08/04/24 22:45 08/04/24 23:20 5 MG Examination Pt is lying on bed General Appearance: Alert, Oriented X3, Cooperative, Not in acute distress HEENT: Atraumatic, Mucous membranes moist/pink Respiratory: Clear to auscultation, Normal air movement, No added sounds Cardiovascular: Regular rate, Normal S1, Normal S2, No murmurs Abdominal: Active bowel sounds, Soft, no distention, no tenderness Extremities: No edema, Normal pulses, No tenderness/swelling Skin: No Significant rash, except past surgical scars Neuro: Normal speech, sensorimotor deficits none Psych/Mental Status: Mental status NL, Mood NL Nurse was there as sharpchicone during examination laboratory and microbiology Laboratory Tests 08/05/24 06:10 Test 08/05/24 06:10 Range/Units Serum Glucose 98 74-106 mg/dL Labs and/or images reviewed: Labs reviewed by me, Image(s) reviewed by me Problem List/Assessment/Plan Problem List/Assessment/Plan # abdominal pain likely due to focal ileus vs SBO vs enteritis # elevated leukocytosis; suspected sepsis # ? Pancreatitis - monitor lab, elevated lipase - Currently clear liquid diet - currently on pain management and Zofran as needed - receiving Protonix, Rocephin and Flagyl - CT abdominal pelvis showed minimal distention of small-bowel loops in left hemiabdomen reflects likely focal ileus versus SBO - consulted surgeon for further evaluation -ordered gastric emptying studies, showed no acute process. After the small- bowel series patient passed stools. -consulted GI and surgery # history of seizures - continue Keppra as prescribed - monitor # depression without suicidal or homicidal intentions - continue paroxetine # hyperlipidemia - Lipitor 20 mg - advised healthy lifestyle modifications diet and exercise # type 2 DM with HbA1c 5.9 - continuously monitored and mild ISS No VTE PPX Protonix Clear liquid diet Reconciled home meds Goals of care discussed with the patient and family for more than 27 minutes: Full code status Case management discussed with Dr. Tan, patient, Family and nurse Plan discussed with: Patient My Orders My Orders Orders - CELESTINO MONIQUE Procedure Category Date Status Time Mrsa Screen MICHELINE 08/04/24 Logged 16:42 Small Bowel Series-W XY 08/05/24 Resulted Gastrogra 07:43 * Surgical Consult CONS 08/05/24 Transmitted 11:48 Date of Service: Aug 05, 2024 Billing Provider: CHERYL TAN MD Common Visit Codes: [id number] INP/OBS CARE(HIGH) CELESTINO MONIQUE RESIDENT Aug 05, 2024 16:40 CHERYL TAN MD Aug 05, 2024 20:01
--- NOTE | 2024-08-06 00:02 | DVHINCON2 ---
DATE OF CONSULTATION: 08/05/2024 HISTORY OF PRESENT ILLNESS: This patient is 44 years old, coming in with abdominal pain, nausea, vomiting. At this point is feeling better. She had a bowel movement. No hematemesis, melena. No bleeding per rectum. PAST MEDICAL HISTORY: Diabetes, hypertension, seizure activity. SURGICAL HISTORY: Includes gallbladder surgery and FRAMER surgery. PHYSICAL EXAMINATION: VITAL SIGNS: Afebrile, stable signs. HEENT: With no evidence of pallor, cyanosis, or jaundice. NECK: Supple, nontender with no thyromegaly or lymphadenopathy. CHEST AND LUNGS: Clear. HEART: Within normal limits. ABDOMEN: Soft, minimally tender. No rebound. EXTREMITIES: Unremarkable. NEUROLOGIC: Intact. CLINICAL IMPRESSION: Resolving small-bowel obstruction/ileus, and at this point needs conservative management. Her small bowel x-ray was done and that shows no evidence of small-bowel obstruction and her white cell count is trending down. At this point, the clinical impression is resolving small-bowel obstruction. PLAN: Will be to allow clear liquids as tolerated. MD RUBEN Chavez/PIERRE/FAVIOLA TID: [id number] RECEIPT: [id number] cc:
[2024-08-06 01:00] VITALS: BP 151/79; PULSE 80; RESP 17; TEMP 98.3; O2SAT 97
[2024-08-06 05:00] VITALS: BP 123/72; PULSE 80; RESP 17; TEMP 98.3; O2SAT 95
[2024-08-06 07:30] LABS: Eosinophils # (auto) 0.1 10 ^3/uL (0-0.8); Eosinophils % (auto) 1.1 % (0.0-7.0); Lymphocytes # (auto) 2.3 10 ^3/uL (0.4-5.4)
[2024-08-06 07:34] LABS: Basophils # (auto) 0.1 10 ^3/uL (0-0.2); Basophils % (auto) 0.5 % (0.0-2.0); Hemoglobin 12.6 g/dL (12.2-16.2); Lymphocytes % (auto) 19.1 % (10.0-50.0); Mean Corpuscular Hgb Conc. 32.2 g/dL (32.0-36.0); Mean Corpuscular Volume 80.8 fL (80.0-100.0); Monocytes # (auto) 0.9 10 ^3/uL (0-1.3); Monocytes % (auto) 7.1 % (0.0-12.0); Neutrophils # (auto) 8.8 10 ^3/uL (1.6-8.6); Neutrophils % (auto) 72.2 % (37.0-80.0); Nucleated Red Blood Cells % 0.1 %; Platelet Count (auto) 292 10^3/uL (140-450); Red Blood Cells 4.82 10^6/uL (4.0-5.20); Red Cell Distribution Width 16.5 % (11.8-14.3); White Blood Cell 12.1 10^3/uL (4.4-10.8)
[2024-08-06 07:49] LABS: Anion Gap 8 (5-15); Calcium 9.8 mg/dL (8.7-10.4); Carbon Dioxide 27 mmol/L (20-31); Chloride 106 mmol/L (98-107); Potassium 3.8 mmol/L (3.5-5.1); Sodium 141 mmol/L (136-145)
[2024-08-06 07:55] LABS: Glucose 99 mg/dL (74-106)
[2024-08-06 07:58] LABS: BUN/Creatinine Ratio 6.3 (10.0-20.0); Blood Urea Nitrogen < 5 mg/dL (9-23)
[2024-08-06 08:00] VITALS: PULSE 80; RESP 16
[2024-08-06 09:00] VITALS: BP 165/93; PULSE 80; RESP 16; TEMP 98.6; O2SAT 97
[2024-08-06] MEDS ORDERED: ACET-1882 PO (10:03)
[2024-08-06] MEDS: IBUPROFEN 400 MG TAB PO PRN (11:20)
[2024-08-06 13:00] VITALS: BP 168/93; PULSE 78; RESP 18; TEMP 98.3; O2SAT 100
--- NOTE | 2024-08-06 14:51 | DVHDSRES ---
Discharge Summary Date of Admission Resident Creating Document: CELESTINO MONIQUE RESIDENT Aug 03, 2024 at 17:21 Date of Discharge: Aug 06, 2024 Admitting Diagnosis Abdominal pain Labs/Diagnostic Data: Laboratory Results Test 08/06/24 11:14 08/06/24 06:49 08/05/24 08:53 08/05/24 06:10 POC Glucose 128 mg/dl (70-106) White Blood Count 12.1 10^3/uL (4.4-10.8) Red Blood Count 4.82 10^6/uL (4.0-5.20) Hemoglobin 12.6 g/dL (12.2-16.2) Hematocrit 39.0 % (36.0-46.0) Mean Corpuscular Volume 80.8 fL (80.0-100.0) Mean Corpuscular Hemoglobin 26.0 pg (28.0-32.0) Mean Corpuscular Hemoglobin Concent 32.2 g/dL (32.0-36.0) Red Cell Distribution Width 16.5 % (11.8-14.3) Platelet Count 292 10^3/uL (140-450) Mean Platelet Volume 9.0 fL (6.9-10.8) Neutrophils (%) (Auto) 72.2 % (37.0-80.0) Lymphocytes (%) (Auto) 19.1 % (10.0-50.0) Monocytes (%) (Auto) 7.1 % (0.0-12.0) Eosinophils (%) (Auto) 1.1 % (0.0-7.0) Basophils (%) (Auto) 0.5 % (0.0-2.0) Neutrophils # (Auto) 8.8 10 ^3/uL (1.6-8.6) Lymphocytes # (Auto) 2.3 10 ^3/uL (0.4-5.4) Monocytes # (Auto) 0.9 10 ^3/uL (0-1.3) Eosinophils # (Auto) 0.1 10 ^3/uL (0-0.8) Basophils # (Auto) 0.1 10 ^3/uL (0-0.2) Nucleated Red Blood Cells 0.1 % Sodium Level 141 mmol/L (136-145) Potassium Level 3.8 mmol/L (3.5-5.1) Chloride Level 106 mmol/L (98-107) Carbon Dioxide Level 27 mmol/L (20-31) Anion Gap 8 (5-15) Blood Urea Nitrogen < 5 mg/dL (9-23) Creatinine 0.79 mg/dL (0.550-1.02) Glomerular Filtration Rate Calc 94 mL/min (>90) BUN/Creatinine Ratio 6.3 (10.0-20.0) Serum Glucose 99 mg/dL (74-106) Calcium Level 9.8 mg/dL (8.7-10.4) Lactic Acid Level 1.8 mmol/L (0.4-2.0) Lipase 52 U/L (12-53) Hepatitis A IgM Antibody Negative Hepatitis B Surface Antigen Negative (Negative) Hepatitis B Core IgM Antibody Negative (Negative) Hepatitis C Antibody Negative (Negative) Test 08/04/24 07:45 08/03/24 14:40 08/03/24 13:54 Prothrombin Time 10.7 sec (9.3-11.8) Prothrombin Time INR 1.01 (0.9-1.15) Activated Partial Thromboplast Time 26.8 SEC (24.5-34.5) Magnesium Level 1.6 mg/dL (1.6-2.6) Total Bilirubin 0.5 mg/dL (0.2-1.0) Aspartate Amino Transferase (AST) 13 U/L (13-40) Alanine Aminotransferase (ALT) 12 U/L (7-40) Alkaline Phosphatase 76 U/L (46-116) Total Protein 6.2 g/dL (5.7-8.2) Albumin 4.1 g/dL (3.2-4.8) Vitamin B12 Level 210 pg/mL (211-911) Vitamin D 25-Hydroxy 19.7 ng/mL (30.0-100) Thyroid Stimulating Hormone (TSH) 2.12 uIU/mL (0.55-4.78) Plasma/Serum Blood Alcohol 3.5 mg/dL (<10) Urine Color Yellow (Yellow) Urine Clarity Clear (Clear) Urine pH 5.5 (5.0-9.0) Urine Specific [place] 1.043 (1.001-1.035) Urine Protein 1+ (Negative) Urine Ketones Trace (Negative) Urine Blood Negative /uL (Negative) Urine Nitrite Negative (Negative) Urine Bilirubin Negative (Negative) Urine Urobilinogen Normal mg/dL (Negative) Urine Leukocyte Esterase Negative /uL (Negative) Urine RBC 4 /hpf (0 - 4) Urine WBC 1 /hpf (0 - 5) Urine Squamous Epithelial Cells Few /hpf (<5) Urine Bacteria Few /hpf (None Seen) Urine Mucus Few (None Seen) Urine Glucose 4+ mg/dL (Normal) Urine Opiates Screen Neg (NEGATIVE) Urine Fentanyl Screen Neg (NEGATIVE) Urine Barbiturates Screen Neg (NEGATIVE) Urine Phencyclidine Screen Neg (NEGATIVE) Urine Amphetamines Screen Neg (NEGATIVE) Urine Benzodiazepines Screen Neg (NEGATIVE) Urine Cocaine Screen Neg (NEGATIVE) Urine Cannabinoids Screen Neg (NEGATIVE) Hemoglobin A1c 5.9 % A1C (<5.7) Other Laboratory Tests 08/06/24 06:49 Brief Hx & Hospital Course: Hugo GREENBERG a 44-year-old female with PMH of type 2 DM, HLD, seizures, iron-deficiency anemia, depression presented to the ED with the chief complaints of intermittent upper abdominal pain for 3-4 weeks. Patient reported patient has been having intermittent upper abdominal pain more towards right-sided which is sharp, 7 to 8/10, nonradiating, no aggravating, no relieving factors but associated with occasional nausea, vomitus without blood and sometimes burning throat. Patient reported she does have loose stools all the times which is not related to this. On my assessment patient denies fever, chest pain, diaphoresis, shortness of breath, palpitations, dizziness, hematemesis, and other acute associated symptoms. Patient required hospital admission for further evaluation and management of abdominal pain. Patient was initially kept on NPO. CT abdominal pelvis showed minimal distention of small-bowel loops in left hemiabdomen reflects likely focal ileus versus SBO. Patient was on IVF, Protonix, Flagyl and Rocephin along with other home medications. Ordered small bowel series which showed findings suggestive of resolving obstruction. Surgical consult evaluated the patient, advised to progress the diet as patient tolerates. after the small-bowel series patient passed stools. Patient condition was improved, hemodynamically stable and in condition to be discharged home with optimal medical treatment. Patient was advised about healthy lifestyle modifications including diet, exercise and to follow up with PCP. General Appearance: Alert, Oriented X3, Cooperative, Not in acute distress HEENT: Atraumatic, Mucous membranes moist/pink Respiratory: Clear to auscultation, Normal air movement, No added sounds Cardiovascular: Regular rate, Normal S1, Normal S2, No murmurs Abdominal: Active bowel sounds, Soft, no distention, no tenderness Extremities: No edema, Normal pulses, No tenderness/swelling Skin: No Significant rash, except past surgical scars Neuro: Normal speech, sensorimotor deficits none Psych/Mental Status: Mental status NL, Mood NL Nurse was there as sharperone during examination Operations or Procedures CT abdominal pelvis showed minimal distention of small-bowel loops in left hemiabdomen reflects likely focal ileus versus SBO XY SMALL BOWEL SERIES-W GASTROGRA: Initial final assembly inspector view of the abdomen and pelvis appears demonstrates no acute process. Contrast is identified within the colon by 3 hours. This represents a normal small bowel transit time. Condition at Discharge: Stable Final Diagnosis/Problems List # abdominal pain likely due to focal ileus vs SBO - resolving # elevated leukocytosis, Likely SIRS without EOD # ruled out Sepsis # Ruled out gastroenteritis # Ruled out Pancreatitis # history of seizures # depression without suicidal or homicidal intentions # hyperlipidemia # type 2 DM with HbA1c 5.9 Discharge Disposition: Home Discharge Instruct/Medications Diet: See Comment Diet comment: Advance diet as tolerated Activity: No Restrictions, As Tolerated Follow Up/Referral: PCP Medications: per EMR Discharge Statement: "Patient was advised to return to the ER or call 911 if any headaches, dizziness, shortness of breath, chest pain, abdominal pain, bleeding, fevers, or worsening of medical condition. Patient was counseled about treatment plan, medications, possible side effects, patientverbalized understanding. All questions were answered to the best of my ability. This discharge took greater then 30 minutes in planning, reviewing documentation, counseling the patient, and discussing with other team members." ASSESSMENT ASSESSMENT Assessment Resolving SBO Date of Service: Aug 06, 2024 Billing Provider: CHERYL TAN MD Common Visit Codes: 99206-ZAM/OBS DISCH DAY >30min CELESTINO MONIQUE RESIDENT Aug 06, 2024 14:51 CHERYL TAN MD Aug 07, 2024 18:13
== END 2024-08-06 15:15 | disposition home or self-care (01) | DRG 389 ==
LOC: ER 13:36 → OVERFLOW 17:21 → WEST WING 08-04 16:18
PROVIDERS: ADMIT Internal Medicine Geriatric Medicine; ATTEND Internal Medicine Geriatric Medicine
DX: K56.699 Other intestinal obstruction unspecified as to partial versus complete obstruction (principal); R65.10 Systemic inflammatory response syndrome (SIRS) of non-infectious origin without acute organ dysfunction; E78.5 Hyperlipidemia, unspecified; F32.A Depression, unspecified; E11.9 Type 2 diabetes mellitus without complications; I10 Essential (primary) hypertension; D50.9 Iron deficiency anemia, unspecified; D72.829 Elevated white blood cell count, unspecified; Z90.49 Acquired absence of other specified parts of digestive tract; Z83.3 Family history of diabetes mellitus; Z79.4 Long term (current) use of insulin; Z79.899 Other long term (current) drug therapy
CPT/HCPCS: 36415; 74176; 74250; 80048; 80053; 80074; 80307; 80320; 81001; 82306; 82607; 82962; 83036; 83605; 83690; 83735; 84443; 85025; 85610; 85730; 96365; 96375; G0378; J1815; J2405; J2470; J3490

== ENCOUNTER 2025-01-25 10:15 | Inpatient (IN) | payer BC, OTHER ==
[~2025-01-25] VITALS: Ht 157.5 cm; Wt 98.0 kg
[~2025-01-25 10:15] MED LIST: ACET-1882 PO; ATOR20TA50 PO; DAPA1TAB7 PO; FERR325T20 PO; LEVE750T3 PO; METO-289 PO; PARO10TA93 PO
--- NOTE | 2025-01-25 11:35 | ED.PDOC ---
GI ASSESSMENT HPI Comments 44y F who presents to the ED for chief complaint of abdominal pain. Pt states she has been having RUQ abdominal pain for the past 1 week. Pt states the pain is intermittent, with no associated exacerbating or relieving factors. Pt states she has had no BM for the past 3 days but otherwise able to pass gas. Pt otherwise denies any other symptoms at this time. Chief Complaint: Abdominal Pain Time Seen by MD: 11:32 Reviewed Notes: Medications, Allergies Allergies: Coded Allergies: Lisinopril (Verified Allergy, Unknown, 01/25/25) Home Meds Active Scripts Acetaminophen (Acetaminophen) 325 Mg Tab, 650 MG PO Q6HP PRN for 10 Days, #80 TAB Prov:SHAINA CONNER RESIDENT 08/06/24 Reported Medications Dapagliflozin-Metformin HCl (Xigduo Xr 5-1000 mg) 1 Tab Tab, 1 TAB PO BID 08/03/24 Atorvastatin Calcium (ATORVASTATIN CALCIUM) 20 Mg Tab, 1 TAB PO DAILY 08/03/24 Ferrous Sulfate (Ferosul) 325 Mg Tab, 1 TAB PO DAILY 08/03/24 Metoprolol Succinate (Metoprolol Succinate Er) 50 Mg Tab, 1 TAB PO DAILY 08/03/24 Levetiracetam (Levetiracetam) 750 Mg Tab, 1 TAB PO BID 08/03/24 Paroxetine Hydrochloride (Paroxetine Hydrochloride) 10 Mg Tab, 1 TAB PO DAILY 08/03/24 Information Source: Patient Mode of Arrival: Ambulatory Brought in by: self Past Medical History PAST MEDICAL HISTORY: Anemia, DM, High Lipids, HTN, Seizures Surgical History: Cholecystectomy CSM CONSULTANT History: No Pertinent CSM CONSULTANT History Family History Family History: Reviewed,noncontributory to illness Social History Smoker: Non-Smoker Alcohol: Denies ETOH Use Drugs: Denies Drug Use Lives In: Home Constitutional: denies: chills, diaphoresis, fatigue, fever, malaise, sweats, weakness, others EENTM: denies: blurred vision, double vision, ear bleeding, ear discharge, ear drainage, ear pain, ear ringing, eye pain, eye redness, hearing loss, mouth pain, mouth swelling, nasal discharge, nose bleeding, nose congestion, nose pain, photophobia, tearing, throat pain, throat swelling, voice changes, others Respiratory: denies: cough, hemoptysis, orthopnea, SOB at rest, shortness of breath, SOB with excertion, stridor, wheezing, others Cardiovascular: denies: chest pain, dizzy spells, diaphoresis, Dyspnea on exertion, edema, irregular heart beat, left arm pain, lightheadedness, palpitations, PND, syncope, others Gastrointestinal: reports: abdominal pain, constipated; denies: abdomen distended, blood streaked bowels, diarrhea, dysphagia, difficulty swallowing, hematemesis, melena, nausea, poor appetite, poor fluid intake, rectal bleeding, rectal pain, vomiting, others Genitourinary: denies: abnormal vagina bleeding, burning, dyspareunia, dysuria, flank pain, frequency, hematuria, incontinence, pain, , vagina discharge, urgency, others Neurological: denies: dizziness, fainting, headache, left sided numbness, left sided weakness, numbness, paresthesia, pre-existing deficit, right sided numbness, right sided weakness, seizure, speech problems, tingling, tremors, weakness, others Musculoskeletal: denies: back pain, gout, joint pain, joint swelling, muscle pain, muscle stiffness, neck pain, others Integumetry: denies: bruises, change in color, change in hair/nails, dryness, laceration, lesions, lumps, rash, wounds, others Allergic/Immunocompromised: denies: Difficulty Healing, Frequent Infections, Hives, Itching, others Hematologic/Lymphatic: denies: anemia, blood clots, easy bleeding, easy bruising, swollen glands, others Endocrine: denies: excessive hunger, excessive sweating, excessive thirst, excessive urination, flushing, intolerance to cold, intolerance to heat, unexplained weight gain, unexplained weight loss, others Psychiatric: denies: anxiety, bipolar disorder, depression, hopeless, panic disorder, schizophrenia, sleepless, suicidal, others All Other Systems: Reviewed and Negative Physical Exam General Appearance: No Apparent Distress, Normal HEENT: Normal ENT Inspection, Pharynx Normal, TMs Normal Neck: Full Range of Motion, Non-Tender, Normal, Normal Inspection Respiratory: Chest Non-Tender, Lungs Clear, No Accessory Muscle Use, No Respiratory Distress, Normal Breath Sounds Cardiovascular: No Edema, No JVD, No Murmur, No Gallop, Normal Peripheral Pulses, Regular Rate/Rhythm Breast Exam: Deferred Gastrointestinal: No Organomegaly, No Pulsatile Mass, Normal Bowel Sounds, RUQ, Soft Genitalia: Deferred Pelvic: Deferred Rectal: Deferred Extremities: No calf tenderness, Normal capillary refill, Normal inspection, Normal range of motion, Non-tender, No pedal edema Musculoskeletal : Apperance: Normal Neurologic: Alert, waterway traffic checker II-XII nml as Tested, No Motor Deficits, Normal Affect, Normal Mood, No Sensory Deficits Cerebellar Function: Normal Reflexes: Normal Skin: Dry, Normal Color, Warm Lymphatic: No Adenopathy Was a procedure done? Was a procedure done?: No GI differential Dx Differential Diagnosis: Constipation, Gastritis/PUD, Gastroenteritis, Hernia, Pancreatitis, Dehydration Other Differential Diagnosis ileus X-Ray, Labs, Meds, VS Vital Signs Date Time Temp Pulse Resp B/P (MAP) Pulse Ox O2 Delivery O2 Flow Rate FiO2 01/25/25 10:34 98.1 71 16 163/87 (112) 98 98.1 Lab Test 01/25/25 11:29 01/25/25 10:35 Range/Units White Blood Count 12.2 H 4.4-10.8 10^3/uL Red Blood Count 5.23 H 4.0-5.20 10^6/uL Hemoglobin 13.6 12.2-16.2 g/dL Hematocrit 42.8 36.0-46.0 % Mean Corpuscular Volume 81.9 80.0-100.0 fL Mean Corpuscular Hemoglobin 26.0 L 28.0-32.0 pg Mean Corpuscular Hemoglobin Concent 31.7 L 32.0-36.0 g/dL Red Cell Distribution Width 17.6 H 11.8-14.3 % Platelet Count 290 140-450 10^3/uL Mean Platelet Volume 8.5 6.9-10.8 fL Neutrophils (%) (Auto) 67.1 37.0-80.0 % Lymphocytes (%) (Auto) 22.9 10.0-50.0 % Monocytes (%) (Auto) 6.5 0.0-12.0 % Eosinophils (%) (Auto) 2.9 0.0-7.0 % Basophils (%) (Auto) 0.6 0.0-2.0 % Neutrophils # (Auto) 8.2 1.6-8.6 10 ^3/uL Lymphocytes # (Auto) 2.8 0.4-5.4 10 ^3/uL Monocytes # (Auto) 0.8 0-1.3 10 ^3/uL Eosinophils # (Auto) 0.4 0-0.8 10 ^3/uL Basophils # (Auto) 0.1 0-0.2 10 ^3/uL Nucleated Red Blood Cells 0.1 % Sodium Level 141 136-145 mmol/L Potassium Level 4.0 3.5-5.1 mmol/L Chloride Level 107 98-107 mmol/L Carbon Dioxide Level 24 20-31 mmol/L Anion Gap 10 5-15 Blood Urea Nitrogen 11 9-23 mg/dL Creatinine 0.89 0.550-1.02 mg/dL Glomerular Filtration Rate Calc 81 >90 mL/min BUN/Creatinine Ratio 12.4 10.0-20.0 Serum Glucose 106 74-106 mg/dL Calcium Level 9.5 8.7-10.4 mg/dL Total Bilirubin 0.3 0.2-1.0 mg/dL Aspartate Amino Transferase (AST) < 8 L 13-40 U/L Alanine Aminotransferase (ALT) < 9 7-40 U/L Alkaline Phosphatase 67 46-116 U/L Total Protein 6.9 5.7-8.2 g/dL Albumin 4.5 3.2-4.8 g/dL Lipase 487 H 12-53 U/L Urine Color Light-yellow Yellow Urine Clarity Hazy H Clear Urine pH 5.5 5.0-9.0 Urine Specific [place] 1.029 1.001-1.035 Urine Protein Negative Negative Urine Ketones Negative Negative Urine Blood Negative Negative /uL Urine Nitrite Negative Negative Urine Bilirubin Negative Negative Urine Urobilinogen Normal Negative mg/dL Urine Leukocyte Esterase 1+ Negative /uL Urine RBC 3 0 - 4 /hpf Urine Microscopic WBC 1 0-5 /HPF Urine Squamous Epithelial Cells Few <5 /hpf Urine Bacteria Few H None Seen /hpf Urine Mucus Few None Seen Urine Glucose 4+ H Normal mg/dL Urine Test Negative Negative Time of 1ST Reevaluation: 12:05 Reevaluation 1ST: Unchanged Time of 2ND Reevaluation: 14:56 Reevaluation 2ND: Unchanged Patient Education/Counseling: Diagnosis, Treatment, Prognosis, Need For Follow Up Family Education/Counseling: No Family Present Additional Information Previous visits reviewed: The following tests were ordered, and results were reviewed by me: KUB abdomen, urine , ua, lipase, cbc, cmp Additional Information was gathered from interviewing the following independent historians: none I reviewed and agreed with the following test results read by other providers: radiologist I discussed treatment and results with medical personnel and: patient Comprehensive systems review obtained and negative except for what is stated in the HPI. pt continues to have right uq pain. she has had her GB removed. she will need to be admitted for pain control and further evaluation Departure 1 Departure Time of Disposition: 14:56 Impression: Primary Impression: Intractable abdominal pain Additional Impressions: Elevated lipase UTI (urinary tract infection) Qualified Codes: N30.00 - Acute cystitis without hematuria Disposition: ADMITTED INPATIENT Admit to: Med Surg Condition: Stable Critical Care Note Critical Care Time?: No Stability Stability form required: No Heart Score Heart Score: Heart Score Response (Comments) Value History N/A 0 EKG N/A 0 Age N/A 0 Risk Factors N/A 0 Troponin N/A 0 Total 0 I personally scribed for ADE ALLEN MD ([email or web address]) on 01/25/25 at 11:35. Electronically submitted by Jimbo Galo ([email or web address]). ADE ALLEN MD January 25, 2025 11:35
[2025-01-25 11:46] LABS: Basophils # (auto) 0.1 10 ^3/uL (0-0.2); Basophils % (auto) 0.6 % (0.0-2.0); Eosinophils # (auto) 0.4 10 ^3/uL (0-0.8); Eosinophils % (auto) 2.9 % (0.0-7.0); Hematocrit 42.8 % (36.0-46.0); Hemoglobin 13.6 g/dL (12.2-16.2); Lymphocytes # (auto) 2.8 10 ^3/uL (0.4-5.4); Lymphocytes % (auto) 22.9 % (10.0-50.0); Mean Corpuscular Hgb Conc. 31.7 g/dL (32.0-36.0); Mean Corpuscular Volume 81.9 fL (80.0-100.0); Monocytes # (auto) 0.8 10 ^3/uL (0-1.3); Monocytes % (auto) 6.5 % (0.0-12.0); Neutrophils # (auto) 8.2 10 ^3/uL (1.6-8.6); Neutrophils % (auto) 67.1 % (37.0-80.0); Nucleated Red Blood Cells % 0.1 %; Platelet Count (auto) 290 10^3/uL (140-450); Red Blood Cells 5.23 10^6/uL (4.0-5.20); Red Cell Distribution Width 17.6 % (11.8-14.3); White Blood Cell 12.2 10^3/uL (4.4-10.8)
[2025-01-25 12:01] LABS: Alanine Aminotransferase < 9 U/L (7-40); Albumin 4.5 g/dL (3.2-4.8); Alkaline Phosphatase 67 U/L (46-116); Anion Gap 10 (5-15); Aspartate Aminotransferase < 8 U/L (13-40); BUN/Creatinine Ratio 12.4 (10.0-20.0); Blood Urea Nitrogen 11 mg/dL (9-23); Calcium 9.5 mg/dL (8.7-10.4); Carbon Dioxide 24 mmol/L (20-31); Chloride 107 mmol/L (98-107); Glucose 106 mg/dL (74-106); Sodium 141 mmol/L (136-145); Total Protein 6.9 g/dL (5.7-8.2)
[2025-01-25 12:02] LABS: Bilirubin, Total 0.3 mg/dL (0.2-1.0); Lipase 487 U/L (12-53)
[2025-01-25 13:18] LABS: Urine Bacteria FEW /hpf (None Seen); Urine Blood Negative /uL (Negative); Urine Mucus FEW (None Seen); Urine Protein, UAD Negative (Negative); Urine Specific Gravity 1.029 (1.001-1.035); Urine Squamous Epithelial Cell FEW /hpf (<5); Urine Urobilinogen Normal (Negative); Urine WBC 1 /HPF (0-5); Urine pH 5.5 (5.0-9.0)
[2025-01-25 13:19] LABS: Urine Clarity Hazy (Clear); Urine Color Light-Yellow (Yellow)
--- NOTE | 2025-01-25 13:45 | DVH ---
Exam: XY KUB ABDOMEN SINGLE VIEW Indication: ruq pain, constipation Comparison: None Technique: radiographic views of the abdomen. Findings: Nonobstructive bowel gas pattern noted. There is no definite evidence for pneumoperitoneum. No abnormal calcifications noted. Impression: 1. Nonobstructive bowel gas pattern noted.
--- NOTE | 2025-01-25 15:40 | DVHHP2 ---
History of Present Illness Reason for Visit: Abdominal pain History of Present Illness Mayra Womack is a 44-year-old female with past medical history of diabetes, hyperlipidemia, seizures, iron deficiency, and depression who presents to the ED for abdominal pain, nausea, and vomiting x 1 week. Patient states that the abdo giselle pain is 8/10 sharp and constant. She also endorses that she did not have a bowel movement for 3 days. She also endorses that the last time since July that she was here she saw her PCP afterwards and they said that all the tests were normal. Patient denies chest pain, shortness of breath, recent sick contacts, recent travels, recent ingestion of spoiled food, recent trauma or injury, flank pain, fever, chills, shortness of breath, chest pain, or headache. Upon examination patient requesting for food and states that she is hungry. She states that she just had a sandwich and she states that she wants a diet order. 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 Mom with diabetes and hypertension.) Smoke: No ALCOHOL: none Drugs: None Lives: with Family Domestic Violence: Neg Review of Systems Gastrointestinal: Abdominal Pain Allergies: Coded Allergies: Lisinopril (Verified Allergy, Unknown, 01/25/25) Medications Current Medications Medications Dose Ordered Sig/Antonietta Route Start Time Stop Time Status Last Admin Dose Admin Acetaminophen/ Hydrocodone Bitart 1 tab Q4HP PRN PO 01/25/25 15:45 UNV Ondansetron HCl 4 mg Q4HP PRN IV 01/25/25 15:45 UNV Acetaminophen 650 mg Q6HP PRN PO 01/25/25 15:45 UNV Morphine Sulfate 2 mg Q4HPRN PRN IV 01/25/25 15:45 UNV Nitroglycerin 0.4 mg Q5MINP PRN SL 01/25/25 15:45 UNV Morphine Sulfate 2 mg Q30M PRN IV 01/25/25 15:45 UNV Ceftriaxone Sodium 50 ml @ 100 mls/hr DAILY@09 IV 01/25/25 15:45 UNV Exam Vital Signs Vital Signs Date Time Temp Pulse Resp B/P (MAP) Pulse Ox O2 Delivery O2 Flow Rate FiO2 5/31/25 14:57 98.4 77 18 151/106 (121) 96 98.4 General Appearance: Alert, Oriented X3, Cooperative, No acute distress HEENT: Atraumatic, PERRLA, EOMI, Mucous membr. moist/pink Respiratory: Clear to auscultation, Normal air movement Cardiovascular: Regular rate, Normal S1, Normal S2 Abdominal: Soft Extremities: No clubbing, No cyanosis, No edema, Normal pulses Skin: No significant lesion Neuro: Normal gait, Normal speech, Strength at / X4 ext, Normal tone, Sensation intact Psych/Mental Status: Mental status NL, Mood NL Labs/Xrays Labs Test 01/25/25 11:29 01/25/25 10:35 Range/Units White Blood Count 12.2 H 4.4-10.8 10^3/uL Red Blood Count 5.23 H 4.0-5.20 10^6/uL Hemoglobin 13.6 12.2-16.2 g/dL Hematocrit 42.8 36.0-46.0 % Mean Corpuscular Volume 81.9 80.0-100.0 fL Mean Corpuscular Hemoglobin 26.0 L 28.0-32.0 pg Mean Corpuscular Hemoglobin Concent 31.7 L 32.0-36.0 g/dL Red Cell Distribution Width 17.6 H 11.8-14.3 % Platelet Count 290 140-450 10^3/uL Mean Platelet Volume 8.5 6.9-10.8 fL Neutrophils (%) (Auto) 67.1 37.0-80.0 % Lymphocytes (%) (Auto) 22.9 10.0-50.0 % Monocytes (%) (Auto) 6.5 0.0-12.0 % Eosinophils (%) (Auto) 2.9 0.0-7.0 % Basophils (%) (Auto) 0.6 0.0-2.0 % Neutrophils # (Auto) 8.2 1.6-8.6 10 ^3/uL Lymphocytes # (Auto) 2.8 0.4-5.4 10 ^3/uL Monocytes # (Auto) 0.8 0-1.3 10 ^3/uL Eosinophils # (Auto) 0.4 0-0.8 10 ^3/uL Basophils # (Auto) 0.1 0-0.2 10 ^3/uL Nucleated Red Blood Cells 0.1 % Sodium Level 141 136-145 mmol/L Potassium Level 4.0 3.5-5.1 mmol/L Chloride Level 107 98-107 mmol/L Carbon Dioxide Level 24 20-31 mmol/L Anion Gap 10 5-15 Blood Urea Nitrogen 11 9-23 mg/dL Creatinine 0.89 0.550-1.02 mg/dL Glomerular Filtration Rate Calc 81 >90 mL/min BUN/Creatinine Ratio 12.4 10.0-20.0 Serum Glucose 106 74-106 mg/dL Calcium Level 9.5 8.7-10.4 mg/dL Total Bilirubin 0.3 0.2-1.0 mg/dL Aspartate Amino Transferase (AST) < 8 L 13-40 U/L Alanine Aminotransferase (ALT) < 9 7-40 U/L Alkaline Phosphatase 67 46-116 U/L Total Protein 6.9 5.7-8.2 g/dL Albumin 4.5 3.2-4.8 g/dL Lipase 487 H 12-53 U/L Urine Color Light-yellow Yellow Urine Clarity Hazy H Clear Urine pH 5.5 5.0-9.0 Urine Specific [place] 1.029 1.001-1.035 Urine Protein Negative Negative Urine Ketones Negative Negative Urine Blood Negative Negative /uL Urine Nitrite Negative Negative Urine Bilirubin Negative Negative Urine Urobilinogen Normal Negative mg/dL Urine Leukocyte Esterase 1+ Negative /uL Urine RBC 3 0 - 4 /hpf Urine Microscopic WBC 1 0-5 /HPF Urine Squamous Epithelial Cells Few <5 /hpf Urine Bacteria Few H None Seen /hpf Urine Mucus Few None Seen Urine Glucose 4+ H Normal mg/dL Urine Test Negative Negative CT CT AB PEL WO CON-NO ORAL OR IV INDICATION: abd pain EXAM DATE: 01/25/2025 03:12 PM COMPARISON: CT CT AB PEL WO CON-NO ORAL OR IV on DOS: 08/03/24 RADIATION DOSE: CTDIvol: 24.21 mGy, DLP: 1328.36 mGy*cm PROCEDURE: Helical CT images were obtained of the abdomen and pelvis without IV contrast Sagittal and coronal reconstructions are provided. ORAL CONTRAST: None. ADDITIONAL IMAGES / REFORMATS: None All CT scans at this medical facility are performed using dose modulation techniques as appropriate to a performed exam including the following: Automated exposure control was utilized; adjustment of the MA and/or KV according to patient size; and use of iterative reconstruction technique. FINDINGS: LUNG BASE: Normal. LIVER: Low in attenuation. GALLBLADDER AND BILIARY TREE: Hermelinda clips. No intra- or extrahepatic biliary ductal dilation. PANCREAS: Normal. SPLEEN: Normal. BOWEL: Mild colonic diverticulosis. The appendix is Normal. ADRENALS: Normal. KIDNEYS AND URETER: There is bilateral punctate nonobstructive kidney stones. BLADDER: Normal. REPRODUCTIVE ORGANS: Normal. LYMPH NODES:No lymphadenopathy. PERITONEUM: No ascites or free air. No other fluid collection. VESSELS: Scattered atherosclerotic calcifications are noted. RETROPERITONEUM: Normal. ABDOMINAL WALL: Normal. BONES: Scattered osseous degenerative changes are noted. IMPRESSION: No acute intraabdominal abnormality. Bilateral punctate nonobstructive kidney stones. Mild hepatic steatosis. Exam: XY KUB ABDOMEN SINGLE VIEW Indication: ruq pain, constipation Comparison: None Technique: radiographic views of the abdomen. Findings: Nonobstructive bowel gas pattern noted. There is no definite evidence for pneumoperitoneum. No abnormal calcifications noted. Impression: 1. Nonobstructive bowel gas pattern noted. Assessment/Plan Assessment/Plan Assessment Intractable abdominal pain likely due to UTI Leukocytosis likely due to UTI Hypertension likely due to pain ? Constipation Bilateral punctate nonobstructive kidney stones Mild hepatic steatosis Hyperlipasemia History of hyperlipidemia History of diabetes type 2 History of seizures History of iron-deficiency History of depression History of cholecystectomy History of Plan Admit to [facility] Antihypertensives IV antibiotics-ceftriaxone Trend lipase HCG KUB noted UA CT abdomen and pelvis noted Hemoglobin A1c ISS and Accu-Cheks Antiemetics Pain management Bowel regimen Diet Home medications reconciled DVT prophylaxis-not indicated patient ambulating PUD prophylaxis-PPIs Discussed plan of care with patient and nurse Plan discussed with: Patient My Orders Orders - LEIDY HILL LION TRAINER Procedure Category Date Status Time Ct Ab Pel Wo Con-No CT 01/25/25 Taken Oral Or Iv 15:03 Admit ADMIT 01/25/25 Transmitted 15:36 Allergies MARIA E 01/25/25 In Process 15:36 Code Status CODE 01/25/25 Transmitted 15:36 Hydrocodone-Acet PHA 01/25/25 Logged 5/325mg Tab ([place] 15:45 Ondansetron Hcl PHA 01/25/25 Logged (Zofran) 15:45 Complete Blood Count LAB 01/26/25 Verified 04:00 Comprehensive LAB 01/26/25 Verified Metabolic Panel 04:00 Cardiac DIET 01/25/25 Transmitted Diet-2gna,Lofat,Lochol Dinner Acetaminophen Tablet PHA 01/25/25 Logged (Tylenol Tablet) 15:45 Morphine Sulfate PHA 01/25/25 Logged Injection 15:45 Sequential MARIA E 01/25/25 In Process Compression Device Nitroglycerin PHA 01/25/25 Logged Sublingual (Ntrostat 15:45 Morphine Sulfate PHA 01/25/25 Logged Injection 15:45 Stat Ekg For Chest [facility] 01/25/25 In Process Pain 15:36 Notify Md Of Changes [facility] 01/25/25 In Process From Base 15:36 Medical Economics Consultant For [facility] 01/25/25 In Process 24 Hours 15:36 Emergency Dysrhythmia [facility] 01/25/25 In Process Protocol 15:36 Rhythm Strips Once [facility] 01/25/25 In Process Every Shift 15:36 Oxygen By Nasal RT 01/25/25 Transmitted Cannula 15:36 Ceftriaxone 1gm/50ml PHA 01/25/25 Logged D5w (Rocephin) 15:45 Atorvastatin (Lipitor) PHA 01/26/25 Transmitted 10:00 Metoprolol Xl PHA 01/26/25 Transmitted Succinate (Toprol Xl) 10:00 (Nf) Ferrous Sulfate PHA 01/26/25 Transmitted (Ferosul) 10:00 (Nf) Levetiracetam PHA 01/25/25 Transmitted 22:00 (Nf) Paroxetine PHA 01/26/25 Transmitted Hydrochloride 10:00 Date of Service: January 25, 2025 Billing Provider: LEIDY HILL Common Visit Codes: [id number] INP/OBS CARE (HIGH) LEIDY HILL January 25, 2025 15:40
[2025-01-25] MEDS ORDERED: MORPHINE SULFATE INJ 2 MG/ml SYRG IV PRN ×2 (15:45)
[2025-01-25] MEDS ORDERED: NITROGLYCERIN 0.4 MG SL TAB SL PRN (15:45)
--- NOTE | 2025-01-25 15:54 | DVH ---
CT CT AB PEL WO CON-NO ORAL OR IV INDICATION: abd pain EXAM DATE: 01/25/2025 03:12 PM COMPARISON: CT CT AB PEL WO CON-NO ORAL OR IV on DOS: 08/03/24 RADIATION DOSE: CTDIvol: 24.21 mGy, DLP: 1328.36 mGy*cm PROCEDURE: Helical CT images were obtained of the abdomen and pelvis without IV contrast Sagittal and coronal reconstructions are provided. ORAL CONTRAST: None. ADDITIONAL IMAGES / REFORMATS: None All C T scans at this medical facility are performed using dose modulation techniques as appropriate to a p erformed exam including the following: Automated exposure control was utilized; adjustment of the MA and/or KV according to patient size; and use of iterative reconstruction technique. FINDINGS: LUNG BASE: Normal. LIVER: Low in attenuation. GALLBLADDER AND BILIARY TREE: Hermelinda clips. No intra- or extrahepatic biliary ductal dilation. PANCREAS: Normal. SPLEEN: Normal. BOWEL: Mild colonic diverticulosis. The appendix is Normal. ADRENALS: Normal. KIDNEYS AND URETER: There is bilateral punctate nonobstructive kidney stones. BLADDER: Normal. REPRODUCTIVE ORGANS: Normal. LYMPH NODES:No lymphadenopathy. PERITONEUM: No ascites or free air. No other fluid collection. VESSELS: Scattered atherosclerotic calcifications are noted. RETROPERITONEUM: Normal. ABDOMINAL WALL: Normal. BONES: Scattered osseous degenerative changes are noted. IMPRESSION: No acute intraabdominal abnormality. Bilateral punctate nonobstructive kidney stones. Mild hepatic steatosis.
[2025-01-25] MEDS: cefTRIAXone 1GM/50ML D5W 50 ML IV ONE (16:06)
[2025-01-25] MEDS: POLYETHYLENE GLYCOL 17 GM PWDR PO SCH (16:06)
[2025-01-25] MEDS ORDERED: DEXTROSE (50%) 50ML SYRG IV PRN (16:30)
[2025-01-25] MEDS: InsuLIN REG 1unit/0.01ml Soln (100units/ml) SC SCH (17:00)
[2025-01-25] MEDS: ACCU-CHEK COMFORT CURVE STRIP VI SCH (17:00)
[2025-01-25 17:29] VITALS: BP 130/78; PULSE 74; RESP 17; TEMP 98.6; O2SAT 98
[2025-01-25 18:24] VITALS: O2SAT 98
[2025-01-25 20:00] VITALS: PULSE 70; RESP 16; O2SAT 95
[2025-01-25 21:00] VITALS: BP 134/74; PULSE 70; RESP 16; TEMP 98; O2SAT 95
[2025-01-25] MEDS: levETIRAcetam 500 MG TAB PO SCH (21:10)
[2025-01-26] VITALS (8 sets, daily range): BP systolic 131–151; BP diastolic 63–88; PULSE 61–76; RESP 16–18; TEMP 97.2–98.5; O2SAT 95–97
[2025-01-26] MEDS: HYDROcodone-ACET 5/325MG TAB PO PRN (05:59)
[2025-01-26 06:10] LABS: Basophils # (auto) 0.1 10 ^3/uL (0-0.2); Basophils % (auto) 0.5 % (0.0-2.0); Eosinophils # (auto) 0.4 10 ^3/uL (0-0.8); Eosinophils % (auto) 3.7 % (0.0-7.0); Hematocrit 40.4 % (36.0-46.0); Hemoglobin 12.9 g/dL (12.2-16.2); Lymphocytes # (auto) 2.8 10 ^3/uL (0.4-5.4); Lymphocytes % (auto) 23.8 % (10.0-50.0); Mean Corpuscular Hemoglobin 25.9 pg (28.0-32.0); Monocytes # (auto) 0.7 10 ^3/uL (0-1.3); Monocytes % (auto) 5.7 % (0.0-12.0); Neutrophils # (auto) 7.8 10 ^3/uL (1.6-8.6); Neutrophils % (auto) 66.3 % (37.0-80.0); Platelet Count (auto) 261 10^3/uL (140-450); Red Blood Cells 4.99 10^6/uL (4.0-5.20); Red Cell Distribution Width 17.4 % (11.8-14.3); White Blood Cell 11.7 10^3/uL (4.4-10.8)
[2025-01-26 06:27] LABS: Albumin 4.1 g/dL (3.2-4.8); Alkaline Phosphatase 60 U/L (46-116); Anion Gap 8 (5-15); BUN/Creatinine Ratio 14.6 (10.0-20.0); Bilirubin, Total 0.4 mg/dL (0.2-1.0); Blood Urea Nitrogen 12 mg/dL (9-23); Calcium 9.1 mg/dL (8.7-10.4); Carbon Dioxide 26 mmol/L (20-31); Potassium 3.9 mmol/L (3.5-5.1); Sodium 141 mmol/L (136-145); Total Protein 6.3 g/dL (5.7-8.2)
[2025-01-26 06:32] LABS: Alanine Aminotransferase < 9 U/L (7-40); Aspartate Aminotransferase < 8 U/L (13-40); Chloride 107 mmol/L (98-107); Glucose 112 mg/dL (74-106); Lipase 282 U/L (12-53)
[2025-01-26] MEDS: cefTRIAXone 1GM/50ML D5W 50 ML IV SCH (10:10)
[2025-01-26] MEDS: METOPROLOL SUCCINATE XL 50 MG TAB PO SCH (10:13)
[2025-01-26] MEDS: FERROUS SULFATE 325mg EC TAB PO SCH (10:13)
[2025-01-26] MEDS: ATORVASTATIN 20 MG TAB PO SCH (10:14)
[2025-01-26] MEDS: PARoxetine 20 MG TAB PO SCH (10:14)
[2025-01-26] MEDS: PANTOPRAZOLE 40 MG/10 ML VIAL INJ IV SCH (10:15)
[2025-01-26] MEDS: LACTATED RINGER'S 1,000 ML IV SCH (11:15)
--- NOTE | 2025-01-26 11:19 | DVHPN2 ---
Subjective Patient seen and examined at bedside, patient is still complaining of abdominal pain. Patient is NPO. Possibly due to pancreatitis. We will get an MRCP done. Patient's pain is mostly in the right upper quadrant area. Continue IV fluids morphine IV for pain. Changes from previous H/P or p: No Changes Gastrointestinal: Abdominal Pain Objective Vitals Vital Signs Date Time Temp Pulse Resp B/P (MAP) Pulse Ox O2 Delivery O2 Flow Rate FiO2 01/26/25 10:13 61 131/63 01/26/25 08:37 98.0 18 96 98.0 01/26/25 08:02 Room Air* 0 21 Intake/Output Intake and Output 01/26/25 07:00 Intake Total 290 ml Output Total 200 ml Balance 90 ml Intake Oral 240 ml IV Total 50 ml Output Urine Total 200 ml General Appearance: Alert, Oriented X3, Cooperative, No acute distress Lungs: Clear to auscultation Cardiovascular: Regular rate, Normal S1, Normal S2 Abdomen: Other (tenderness) Psych/Mental Status: Mental status NL Medications Current Medications Medications Dose Ordered Sig/Antonietta Route Start Time Stop Time Status Last Admin Dose Admin Acetaminophen/ Hydrocodone Bitart 1 tab Q4HP PRN PO 01/25/25 15:45 01/26/25 10:12 1 TAB Ondansetron HCl 4 mg Q4HP PRN IV 01/25/25 15:45 Acetaminophen 650 mg Q6HP PRN PO 01/25/25 15:45 Morphine Sulfate 2 mg Q4HPRN PRN IV 01/25/25 15:45 Nitroglycerin 0.4 mg Q5MINP PRN SL 01/25/25 15:45 Morphine Sulfate 2 mg Q30M PRN IV 01/25/25 15:45 Ceftriaxone Sodium 50 ml @ 100 mls/hr DAILY@09 IV 01/26/25 09:00 01/26/25 10:10 100 MLS/HR Atorvastatin Calcium 20 mg DAILY PO 01/26/25 10:00 01/26/25 10:14 20 MG Metoprolol Succinate 50 mg DAILY PO 01/26/25 10:00 01/26/25 10:13 50 MG Ferrous Sulfate 325 mg DAILY PO 01/26/25 10:00 01/26/25 10:13 325 MG Levetiracetam 750 mg BID PO 01/25/25 22:00 01/26/25 10:14 750 MG Paroxetine HCl 10 mg DAILY PO 01/26/25 10:00 01/26/25 10:14 10 MG Polyethylene Glycol 17 gm DAILY PO 01/25/25 15:45 01/26/25 10:15 17 GM Sennosides 8.6 mg QHSP PRN PO 01/25/25 15:45 Diagnostic Test (Pha) 1 strip ACHS 01/25/25 17:00 01/26/25 06:01 1 STRIP Insulin Human Regular ACHS SC 01/25/25 17:00 01/25/25 21:16 2 UNITS Dextrose 50 ml UD PRN IV 01/25/25 16:30 Hydralazine HCl 10 mg Q6HP PRN IV 01/25/25 16:45 Pantoprazole Sodium 40 mg DAILY IV 01/26/25 10:00 01/26/25 10:15 40 MG Laboratory Results Laboratory Tests 01/26/25 05:51 Chemistry Test 01/25/25 11:29 01/26/25 05:51 Albumin 4.5 g/dL (3.2-4.8) 4.1 g/dL (3.2-4.8) Calcium Level 9.5 mg/dL (8.7-10.4) 9.1 mg/dL (8.7-10.4) Total Protein 6.9 g/dL (5.7-8.2) 6.3 g/dL (5.7-8.2) Lipid panel Test 01/25/25 11:29 01/26/25 05:51 Lipase 487 U/L (12-53) H 282 U/L (12-53) H LFT Test 01/25/25 11:29 01/26/25 05:51 Alanine Aminotransferase (ALT) < 9 U/L (7-40) < 9 U/L (7-40) Alkaline Phosphatase 67 U/L (46-116) 60 U/L (46-116) Aspartate Amino Transferase (AST) < 8 U/L (13-40) L < 8 U/L (13-40) L Total Bilirubin 0.3 mg/dL (0.2-1.0) 0.4 mg/dL (0.2-1.0) HgA1c, TSH Test 01/25/25 11:29 Hemoglobin A1c 5.8 % A1C (<5.7) H Urinalysis Test 01/25/25 10:35 Urine Color Light-yellow (Yellow) Urine Clarity Hazy (Clear) H Urine pH 5.5 (5.0-9.0) Urine Specific [place] 1.029 (1.001-1.035) Urine Protein Negative (Negative) Urine Ketones Negative (Negative) Urine Blood Negative /uL (Negative) Urine Nitrite Negative (Negative) Urine Bilirubin Negative (Negative) Urine Urobilinogen Normal mg/dL (Negative) Urine Leukocyte Esterase 1+ /uL (Negative) Urine RBC 3 /hpf (0 - 4) Urine Microscopic WBC 1 /HPF (0-5) Urine Squamous Epithelial Cells Few /hpf (<5) Urine Bacteria Few /hpf (None Seen) H Urine Mucus Few (None Seen) Urine Glucose 4+ mg/dL (Normal) H Urine Test Negative (Negative) Assessment/Plan Assessment/Plan # Abdominal Pain - Possibly Pancreatitis vs Acute Cholecystitis - NPO - IVF # DM2 A1c 5.8 # Psych Disorder- Stable # 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 # Bilateral kidney stones - Non punctuating - Urology as outpatient # Goals of care discussion >18 mins FULL CODE Plan discussed with: Patient My Orders Orders - LELA PERDOMO MD Procedure Category Date Status Time Lactated Ringers Lr PHA 01/26/25 Transmitted 11:15 Mrcp Mri MRI 01/26/25 Transmitted 11:14 Npo Except Ice Chips MARIA E 01/26/25 Transmitted 11:14 Npo (Nothing By DIET 01/26/25 Transmitted Mouth) Diet Lunch Comprehensive LAB 01/27/25 Verified Metabolic Panel 04:00 Prothrombin Time W/ LAB 01/27/25 Verified INR 04:00 Partial LAB 01/27/25 Verified Thromboplastin Time 04:00 Complete Blood Count LAB 01/27/25 Verified 04:00 Date of Service: Jan 26, 2025 Billing Provider: LELA PERDOMO MD Common Visit Codes: [id number] INP/OBS CARE(HIGH) Secondary Visit Codes: [id number] CARE PLAN 30 MINUTES LELA PERDOMO MD Jan 26, 2025 11:19
[2025-01-26] MEDS ORDERED: MORPHINE SULFATE 4 MG/ML SYR/VIAL IV PRN (11:45)
[2025-01-26] MEDS: MORPHINE SULFATE 4 MG/ML SYR/VIAL IV PRN (11:53)
--- NOTE | 2025-01-26 15:51 | DVH ---
CLINICAL INFORMATION: Abdominal pain. TECHNIQUE: Multisequence multiplanar MRI images of the abdomen were obtained without IV contrast. [facility] T2-weighted MRCP images were obtained. 3D MRCP images were created. COMPARISON: CT of the abdomen and pelvis dated 01/25/2025. FINDINGS: Postsurgical changes of prior cholecystectomy. No biliary ductal dilatation. No filling def ect or stricture identified in the common bile duct on MRCP. Pancreatic duct is unremarkable. The carline er, spleen, pancreas, adrenal glands, and kidneys appear unremarkable on limited noncontrast enhanced MRI images. IMPRESSION: 1. No biliary ductal dilatation. No filling defect or stricture identified in the common bile duct on MRCP images. 2. Otherwise, no acute abnormality identified in the abdomen as described above.
[2025-01-26] MEDS: SENNA 8.6 MG TAB PO PRN (22:11)
[2025-01-27] VITALS (7 sets, daily range): BP systolic 138–160; BP diastolic 78–94; PULSE 60–79; RESP 16–20; TEMP 97.5–98.7; O2SAT 97–98
[2025-01-27 07:17] LABS: Basophils # (auto) 0 10 ^3/uL (0-0.2); Eosinophils # (auto) 0.3 10 ^3/uL (0-0.8); Monocytes # (auto) 0.5 10 ^3/uL (0-1.3); Nucleated Red Blood Cells % 0.1 %
[2025-01-27 07:22] LABS: Basophils % (auto) 0.3 % (0.0-2.0); Eosinophils % (auto) 3.2 % (0.0-7.0); Hematocrit 40.7 % (36.0-46.0); Hemoglobin 13.1 g/dL (12.2-16.2); Lymphocytes # (auto) 2.3 10 ^3/uL (0.4-5.4); Lymphocytes % (auto) 26.7 % (10.0-50.0); Mean Corpuscular Hemoglobin 26.1 pg (28.0-32.0); Mean Corpuscular Hgb Conc. 32.3 g/dL (32.0-36.0); Mean Corpuscular Volume 80.9 fL (80.0-100.0); Monocytes % (auto) 6.3 % (0.0-12.0); Neutrophils # (auto) 5.6 10 ^3/uL (1.6-8.6); Neutrophils % (auto) 63.5 % (37.0-80.0); Platelet Count (auto) 253 10^3/uL (140-450); Red Blood Cells 5.03 10^6/uL (4.0-5.20); Red Cell Distribution Width 17.6 % (11.8-14.3); White Blood Cell 8.7 10^3/uL (4.4-10.8)
[2025-01-27 07:34] LABS: Alanine Aminotransferase 55 U/L (7-40); Alkaline Phosphatase 126 U/L (46-116); Anion Gap 7 (5-15); Aspartate Aminotransferase 48 U/L (13-40); BUN/Creatinine Ratio 9.8 (10.0-20.0); Bilirubin, Total 0.5 mg/dL (0.2-1.0); Blood Urea Nitrogen 8 mg/dL (9-23); Calcium 9.7 mg/dL (8.7-10.4); Carbon Dioxide 28 mmol/L (20-31); Chloride 107 mmol/L (98-107); Glucose 103 mg/dL (74-106); Potassium 4.3 mmol/L (3.5-5.1); Sodium 142 mmol/L (136-145); Total Protein 6.3 g/dL (5.7-8.2)
[2025-01-27 07:35] LABS: INR 0.98 (0.9-1.15); Partial Thromboplastin Time 24.8 SEC (24.5-34.5); Prothrombin Time 10.4 sec (9.3-11.8)
[2025-01-27] MEDS: hydrALAZINE HCL 20 MG/ML VL IV PRN (11:52)
[2025-01-27 14:36] LABS: Hepatitis A Ab IgM Negative; Hepatitis B Core IgM Negative (Negative); Hepatitis B Surface Antigen Negative (Negative); Hepatitis C Antibody Negative (Negative)
--- NOTE | 2025-01-27 14:58 | DVHPN2 ---
Subjective Patient seen and examined at bedside, patient is still complaining of abdominal pain. MRCP reviewed, will get HIDA Scan done. Cont NPO status Changes from previous H/P or p: No Changes Gastrointestinal: Abdominal Pain Objective Vitals Vital Signs Date Time Temp Pulse Resp B/P (MAP) Pulse Ox O2 Delivery O2 Flow Rate FiO2 01/27/25 13:08 75 16 140/76 01/27/25 08:51 98.0 97 98.0 01/27/25 08:00 Room Air* 0 21 Intake/Output Intake and Output 01/27/25 07:00 Intake Total 1050 ml Output Total 250 ml Balance 800 ml Intake Oral 0 ml IV Total 1050 ml Output Urine Total 250 ml # Voids 3 General Appearance: Alert, Oriented X3, Cooperative, No acute distress Lungs: Clear to auscultation Cardiovascular: Regular rate, Normal S1, Normal S2 Abdomen: Other (tenderness) Psych/Mental Status: Mental status NL Medications Current Medications Medications Dose Ordered Sig/Antonietta Route Start Time Stop Time Status Last Admin Dose Admin Acetaminophen/ Hydrocodone Bitart 1 tab Q4HP PRN PO 01/25/25 15:45 01/26/25 10:12 1 TAB Ondansetron HCl 4 mg Q4HP PRN IV 01/25/25 15:45 Acetaminophen 650 mg Q6HP PRN PO 01/25/25 15:45 Morphine Sulfate 2 mg Q4HPRN PRN IV 01/25/25 15:45 Cancel Nitroglycerin 0.4 mg Q5MINP PRN SL 01/25/25 15:45 Morphine Sulfate 2 mg Q30M PRN IV 01/25/25 15:45 Cancel Ceftriaxone Sodium 50 ml @ 100 mls/hr DAILY@09 IV 01/26/25 09:00 01/27/25 08:17 100 MLS/HR Metoprolol Succinate 50 mg DAILY PO 01/26/25 10:00 01/27/25 08:37 50 MG Ferrous Sulfate 325 mg DAILY PO 01/26/25 10:00 01/27/25 08:37 325 MG Levetiracetam 750 mg BID PO 01/25/25 22:00 01/27/25 08:36 750 MG Paroxetine HCl 10 mg DAILY PO 01/26/25 10:00 01/27/25 08:36 10 MG Polyethylene Glycol 17 gm DAILY PO 01/25/25 15:45 01/27/25 08:37 17 GM Sennosides 8.6 mg QHSP PRN PO 01/25/25 15:45 01/26/25 22:11 8.6 MG Diagnostic Test (Pha) 1 strip ACHS 01/25/25 17:00 01/27/25 11:08 1 STRIP Insulin Human Regular ACHS SC 01/25/25 17:00 01/25/25 21:16 2 UNITS Dextrose 50 ml UD PRN IV 01/25/25 16:30 Hydralazine HCl 10 mg Q6HP PRN IV 01/25/25 16:45 01/27/25 11:52 10 MG Pantoprazole Sodium 40 mg DAILY IV 01/26/25 10:00 01/27/25 08:36 40 MG Lactated Ringer's 1,000 ml @ 125 mls/hr Q8H IV 01/26/25 11:15 01/27/25 00:28 125 MLS/HR Morphine Sulfate 2 mg Q4HPRN PRN IV 01/26/25 11:45 01/27/25 12:02 2 MG Morphine Sulfate 2 mg Q30M PRN IV 01/26/25 11:45 Laboratory Results Laboratory Tests 01/27/25 06:22 Chemistry Test 01/27/25 06:22 Albumin 4.0 g/dL (3.2-4.8) Calcium Level 9.7 mg/dL (8.7-10.4) Total Protein 6.3 g/dL (5.7-8.2) Coagulation Test 01/27/25 06:22 Prothrombin Time 10.4 sec (9.3-11.8) Prothrombin Time INR 0.98 (0.9-1.15) Activated Partial Thromboplast Time 24.8 SEC (24.5-34.5) LFT Test 01/27/25 06:22 Alanine Aminotransferase (ALT) 55 U/L (7-40) H Alkaline Phosphatase 126 U/L (46-116) H Aspartate Amino Transferase (AST) 48 U/L (13-40) H Total Bilirubin 0.5 mg/dL (0.2-1.0) Urinalysis Test 01/25/25 10:35 Urine Color Light-yellow (Yellow) Urine Clarity Hazy (Clear) H Urine pH 5.5 (5.0-9.0) Urine Specific [place] 1.029 (1.001-1.035) Urine Protein Negative (Negative) Urine Ketones Negative (Negative) Urine Blood Negative /uL (Negative) Urine Nitrite Negative (Negative) Urine Bilirubin Negative (Negative) Urine Urobilinogen Normal mg/dL (Negative) Urine Leukocyte Esterase 1+ /uL (Negative) Urine RBC 3 /hpf (0 - 4) Urine Microscopic WBC 1 /HPF (0-5) Urine Squamous Epithelial Cells Few /hpf (<5) Urine Bacteria Few /hpf (None Seen) H Urine Mucus Few (None Seen) Urine Glucose 4+ mg/dL (Normal) H Urine Test Negative (Negative) Assessment/Plan Assessment/Plan # Abdominal Pain - Possibly Pancreatitis vs Acute Cholecystitis - NPO - IVF - HIDA Scan # DM2 A1c 5.8 # Psych Disorder- Stable # 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 # Bilateral kidney stones - Non punctuating - Urology as outpatient # Goals of care discussion >18 mins FULL CODE Plan discussed with: Patient My Orders Orders - LELA PERDOMO MD Procedure Category Date Status Time * Surgical Consult CONS 01/27/25 Transmitted Nm Hida Scan NM 01/27/25 Logged 13:21 Lipase LAB 01/28/25 Verified 04:00 Comprehensive LAB 01/28/25 Verified Metabolic Panel 04:00 * [facility] Residential Pest Control Technician CONS 01/27/25 Transmitted 13:21 Nm Hida Scan NM 01/27/25 Logged 14:51 Date of Service: Jan 27, 2025 Billing Provider: LELA PERDOMO MD Common Visit Codes: [id number] INP/OBS CARE(HIGH) LELA PERDOMO MD Jan 27, 2025 14:58
--- NOTE | 2025-01-27 15:52 | DVH ---
Procedure: LA NM HIDA SCAN Exam Date: 01/27/2025 02:28 PM Clinical History: Choley Comparison Study: None Nuclear Medicine Hepatobiliary Scan. Technique: Following the intravenous administration of 6 mCi of technetium 99m labeled Choletec multiple planar abdominal planar images were obtained in anterior projection in 5 minute intervals for45 minutes . Ri ght lateral images were obtained at 45 minutes after injection. Findings: The liver appears grossly normal in size. There is no abnormal persistence of the cardiac or blood po ol activity. There is prompt visualization of excretion of activity into the small bowel. Impression: No bile leak.
[2025-01-27] MEDS: ACETAMINOPHEN 325 MG TAB PO PRN (19:59)
[2025-01-28] VITALS (9 sets, daily range): BP systolic 143–152; BP diastolic 80–88; PULSE 67–81; RESP 17–20; TEMP 96.7–99; O2SAT 95–100
[2025-01-28 07:49] LABS: Alanine Aminotransferase 33 U/L (7-40); Albumin 4.1 g/dL (3.2-4.8); Anion Gap 8 (5-15); Aspartate Aminotransferase 19 U/L (13-40); BUN/Creatinine Ratio 10.7 (10.0-20.0); Calcium 9.8 mg/dL (8.7-10.4); Carbon Dioxide 25 mmol/L (20-31); Chloride 106 mmol/L (98-107); Sodium 139 mmol/L (136-145); Total Protein 6.3 g/dL (5.7-8.2)
[2025-01-28 07:50] LABS: Bilirubin, Total 0.5 mg/dL (0.2-1.0)
[2025-01-28 07:54] LABS: Blood Urea Nitrogen 8 mg/dL (9-23)
[2025-01-28 08:04] LABS: Alkaline Phosphatase 106 U/L (46-116)
[2025-01-28 08:40] LABS: Glucose 85 mg/dL (74-106); Lipase 53 U/L (12-53)
[2025-01-28] MEDS: ONDANSETRON HCL 4 MG/2 ML VIAL IV PRN (16:18)
--- NOTE | 2025-01-28 16:54 | DVHPN2 ---
Subjective Patient seen and examined at bedside, patient is still complaining of abdominal pain. start full liquids. Changes from previous H/P or p: No Changes Gastrointestinal: Abdominal Pain Objective Vitals Vital Signs Date Time Temp Pulse Resp B/P (MAP) Pulse Ox O2 Delivery O2 Flow Rate FiO2 01/28/25 16:30 74 17 137/77 01/28/25 13:00 97.4 97 97.4 01/28/25 08:00 Room Air* 0 21 Intake/Output Intake and Output 01/28/25 07:00 Intake Total 1030 ml Balance 1030 ml Intake Oral 0 ml IV Total 1030 ml # Voids 1 General Appearance: Alert, Oriented X3, Cooperative, No acute distress Lungs: Clear to auscultation Cardiovascular: Regular rate, Normal S1, Normal S2 Abdomen: Other (tenderness) Psych/Mental Status: Mental status NL Medications Current Medications Medications Dose Ordered Sig/Antonietta Route Start Time Stop Time Status Last Admin Dose Admin Acetaminophen/ Hydrocodone Bitart 1 tab Q4HP PRN PO 01/25/25 15:45 01/28/25 15:05 1 TAB Ondansetron HCl 4 mg Q4HP PRN IV 01/25/25 15:45 01/28/25 16:18 4 MG Acetaminophen 650 mg Q6HP PRN PO 01/25/25 15:45 01/28/25 02:03 650 MG Morphine Sulfate 2 mg Q4HPRN PRN IV 01/25/25 15:45 Cancel Nitroglycerin 0.4 mg Q5MINP PRN SL 01/25/25 15:45 Morphine Sulfate 2 mg Q30M PRN IV 01/25/25 15:45 Cancel Ceftriaxone Sodium 50 ml @ 100 mls/hr DAILY@09 IV 01/26/25 09:00 01/28/25 09:11 100 MLS/HR Metoprolol Succinate 50 mg DAILY PO 01/26/25 10:00 01/28/25 09:11 50 MG Ferrous Sulfate 325 mg DAILY PO 01/26/25 10:00 01/28/25 09:11 325 MG Levetiracetam 750 mg BID PO 01/25/25 22:00 01/28/25 09:11 750 MG Paroxetine HCl 10 mg DAILY PO 01/26/25 10:00 01/28/25 09:12 10 MG Polyethylene Glycol 17 gm DAILY PO 01/25/25 15:45 6/3/25 09:11 17 GM Sennosides 8.6 mg QHSP PRN PO 01/25/25 15:45 01/26/25 22:11 8.6 MG Diagnostic Test (Pha) 1 strip ACHS 01/25/25 17:00 01/28/25 11:37 1 STRIP Insulin Human Regular ACHS SC 01/25/25 17:00 01/25/25 21:16 2 UNITS Dextrose 50 ml UD PRN IV 01/25/25 16:30 Hydralazine HCl 10 mg Q6HP PRN IV 01/25/25 16:45 01/28/25 11:36 10 MG Pantoprazole Sodium 40 mg DAILY IV 01/26/25 10:00 01/28/25 09:11 40 MG Lactated Ringer's 1,000 ml @ 125 mls/hr Q8H IV 01/26/25 11:15 01/28/25 16:18 125 MLS/HR Morphine Sulfate 2 mg Q4HPRN PRN IV 01/26/25 11:45 01/28/25 16:30 2 MG Morphine Sulfate 2 mg Q30M PRN IV 01/26/25 11:45 Laboratory Results Laboratory Tests 01/27/25 06:22 01/28/25 07:15 Chemistry Test 01/28/25 07:15 Albumin 4.1 g/dL (3.2-4.8) Calcium Level 9.8 mg/dL (8.7-10.4) Total Protein 6.3 g/dL (5.7-8.2) Lipid panel Test 01/28/25 07:15 Lipase 53 U/L (12-53) LFT Test 01/28/25 07:15 Alanine Aminotransferase (ALT) 33 U/L (7-40) Alkaline Phosphatase 106 U/L (46-116) Aspartate Amino Transferase (AST) 19 U/L (13-40) Total Bilirubin 0.5 mg/dL (0.2-1.0) Urinalysis Test 01/25/25 10:35 Urine Color Light-yellow (Yellow) Urine Clarity Hazy (Clear) H Urine pH 5.5 (5.0-9.0) Urine Specific [place] 1.029 (1.001-1.035) Urine Protein Negative (Negative) Urine Ketones Negative (Negative) Urine Blood Negative /uL (Negative) Urine Nitrite Negative (Negative) Urine Bilirubin Negative (Negative) Urine Urobilinogen Normal mg/dL (Negative) Urine Leukocyte Esterase 1+ /uL (Negative) Urine RBC 3 /hpf (0 - 4) Urine Microscopic WBC 1 /HPF (0-5) Urine Squamous Epithelial Cells Few /hpf (<5) Urine Bacteria Few /hpf (None Seen) H Urine Mucus Few (None Seen) Urine Glucose 4+ mg/dL (Normal) H Urine Test Negative (Negative) Assessment/Plan Assessment/Plan # Abdominal Pain - Possibly Pancreatitis - Full Liquids - IVF # DM2 A1c 5.8 # Psych Disorder- Stable # 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
--- NOTE | 2025-01-28 22:51 | DVHINCON2 ---
Date of service: Jan 28, [address] Chino Reason for Consultation Left upper quadrant pain and elevated liver enzymes History of Present Illness Mayra Womack is a 44-year-old female with past medical history of diabetes, hyperlipidemia, seizures, iron deficiency, and depression who presents to the ED for abdominal pain, nausea, and vomiting x 1 week. Patient states that the LUQ abdominal pain is 8/10 sharp and constant. She also endorses that she did not have a bowel movement for 3 days. She also endorses that the last time since July that she was here she saw her PCP afterwards and they said that all the tests were normal. Patient developed mild elevation in liver enzymes which have normalized, hepatitis panel is negative ;Mild elevation in lipase mild leukocytosis which has resolved;Patient has had previous cholecystectomy and HIDA scan showed no bile leak Family History: Diabetes mellitus G8 MOTHER G8 FATHER Allergies: Coded Allergies: Lisinopril (Verified Allergy, Unknown, 01/25/25) Home Meds Active Scripts Acetaminophen (Acetaminophen) 325 Mg Tab, 650 MG PO Q6HP PRN for 10 Days, #80 TAB Prov:SHAINA CONNER RESIDENT 08/06/24 Reported Medications Dapagliflozin-Metformin HCl (Xigduo Xr 5-1000 mg) 1 Tab Tab, 1 TAB PO BID 08/03/24 Atorvastatin Calcium (ATORVASTATIN CALCIUM) 20 Mg Tab, 1 TAB PO DAILY 08/03/24 Ferrous Sulfate (Ferosul) 325 Mg Tab, 1 TAB PO DAILY 08/03/24 Metoprolol Succinate (Metoprolol Succinate Er) 50 Mg Tab, 1 TAB PO DAILY 08/03/24 Levetiracetam (Levetiracetam) 750 Mg Tab, 1 TAB PO BID 08/03/24 Paroxetine Hydrochloride (Paroxetine Hydrochloride) 10 Mg Tab, 1 TAB PO DAILY 08/03/24 Vital Signs Vital Signs Date Time Temp Pulse Resp B/P (MAP) Pulse Ox O2 Delivery O2 Flow Rate FiO2 01/28/25 21:30 150/88 (108) 01/28/25 21:00 99.0 67 18 95 99.0 01/28/25 20:00 Room Air* 0 21 Labs/Diagnostic Data Labs Test 01/28/25 20:58 01/28/25 07:15 01/27/25 06:22 01/25/25 11:29 Range/Units POC Glucose 148 H 70-106 mg/dl Sodium Level 139 136-145 mmol/L Potassium Level 4.0 3.5-5.1 mmol/L Chloride Level 106 98-107 mmol/L Carbon Dioxide Level 25 20-31 mmol/L Anion Gap 8 5-15 Blood Urea Nitrogen 8 L 9-23 mg/dL Creatinine 0.75 0.550-1.02 mg/dL Glomerular Filtration Rate Calc 100 >90 mL/min BUN/Creatinine Ratio 10.7 10.0-20.0 Serum Glucose 85 74-106 mg/dL Calcium Level 9.8 8.7-10.4 mg/dL Total Bilirubin 0.5 0.2-1.0 mg/dL Aspartate Amino Transferase (AST) 19 13-40 U/L Alanine Aminotransferase (ALT) 33 7-40 U/L Alkaline Phosphatase 106 46-116 U/L Total Protein 6.3 5.7-8.2 g/dL Albumin 4.1 3.2-4.8 g/dL Lipase 53 12-53 U/L White Blood Count 8.7 # 4.4-10.8 10^3/uL Red Blood Count 5.03 4.0-5.20 10^6/uL Hemoglobin 13.1 12.2-16.2 g/dL Hematocrit 40.7 36.0-46.0 % Mean Corpuscular Volume 80.9 80.0-100.0 fL Mean Corpuscular Hemoglobin 26.1 L 28.0-32.0 pg Mean Corpuscular Hemoglobin Concent 32.3 32.0-36.0 g/dL Red Cell Distribution Width 17.6 H 11.8-14.3 % Platelet Count 253 140-450 10^3/uL Mean Platelet Volume 8.9 6.9-10.8 fL Neutrophils (%) (Auto) 63.5 37.0-80.0 % Lymphocytes (%) (Auto) 26.7 10.0-50.0 % Monocytes (%) (Auto) 6.3 0.0-12.0 % Eosinophils (%) (Auto) 3.2 0.0-7.0 % Basophils (%) (Auto) 0.3 0.0-2.0 % Neutrophils # (Auto) 5.6 1.6-8.6 10 ^3/uL Lymphocytes # (Auto) 2.3 0.4-5.4 10 ^3/uL Monocytes # (Auto) 0.5 0-1.3 10 ^3/uL Eosinophils # (Auto) 0.3 0-0.8 10 ^3/uL Basophils # (Auto) 0 0-0.2 10 ^3/uL Nucleated Red Blood Cells 0.1 % Prothrombin Time 10.4 9.3-11.8 sec Prothrombin Time INR 0.98 0.9-1.15 Activated Partial Thromboplast Time 24.8 24.5-34.5 SEC Hepatitis A IgM Antibody Negative Hepatitis B Surface Antigen Negative Negative Hepatitis B Core IgM Antibody Negative Negative Hepatitis C Antibody Negative Negative Hemoglobin A1c 5.8 H <5.7 % A1C Test 01/25/25 10:35 Range/Units Urine Color Light-yellow Yellow Urine Clarity Hazy H Clear Urine pH 5.5 5.0-9.0 Urine Specific [place] 1.029 1.001-1.035 Urine Protein Negative Negative Urine Ketones Negative Negative Urine Blood Negative Negative /uL Urine Nitrite Negative Negative Urine Bilirubin Negative Negative Urine Urobilinogen Normal Negative mg/dL Urine Leukocyte Esterase 1+ Negative /uL Urine RBC 3 0 - 4 /hpf Urine Microscopic WBC 1 0-5 /HPF Urine Squamous Epithelial Cells Few <5 /hpf Urine Bacteria Few H None Seen /hpf Urine Mucus Few None Seen Urine Glucose 4+ H Normal mg/dL Urine Test Negative Negative MRCP IMPRESSION: 1. No biliary ductal dilatation. No filling defect or stricture identified in the common bile duct on MRCP images. 2. Otherwise, no acute abnormality identified in the abdomen as described above. CT SCAN ABD PELVIS IMPRESSION: No acute intraabdominal abnormality. Bilateral punctate nonobstructive kidney stones. Mild hepatic steatosis. Problems(with codes): (1) Intractable abdominal pain (2) Elevated lipase (3) UTI (urinary tract infection) (4) Ileus Plan/Recommendation Plan Clinical pattern of mild elevation liver enzymes, mild pancreatitis and mild leukocytosis possibly related to passage of sludge with differential diagnosis of alcohol or me medication related issues MRCP is negative as is the CT abdomen and liver enzymes have normalized, continue to monitor labs and give supportive care Left upper quadrant pain possibly related to the pancreatitis but CT abdomen is negative Because the patient had nausea vomiting and GERD like symptoms I will plan an endoscopy on 01/29/2025 Patient is still has constipation and I will give her some MiraLax and stool softeners Patient was advised outpatient elective colonoscopy also for colon cancer screening Plan discussed with: Patient VIKRAM RUIZ MD Jan 28, 2025 22:51
[2025-01-29] VITALS (9 sets, daily range): BP systolic 115–154; BP diastolic 76–91; PULSE 17–75; RESP 15–20; TEMP 97.7–99.1; O2SAT 94–98
[2025-01-29] MEDS: DOCUSATE SOD 100 MG CAP PO SCH (09:23)
[2025-01-29] MEDS: LACTULOSE 20Gm/30ML SOLN PO SCH (09:23)
[2025-01-29] MEDS ORDERED: SODIUM CHLORIDE LOCK 10 ML ONE (09:34)
[2025-01-29] MEDS: LIDOCAINE VISCOUS 2% 15ML UD ONE (15:58)
[2025-01-29] MEDS: fentaNYL CITRATE 100 MCG/2 ML VL ONE (16:00)
[2025-01-29] MEDS: MIDAZOLAM HCL 5 MG/ML-1ML VIAL ONE (16:00)
[2025-01-29] MEDS: diphenhdrAMINE HCL 50 MG/1 ML VL ONE (16:00)
--- NOTE | 2025-01-29 16:12 | DVHOP2 ---
Operative Report DATE OF OPERATION: 01/29/25 PROCEDURE: Upper Endoscopy with biopsy. PREOPERATIVE INDICATION: The patient is a 44 -year-old female undergoing endoscopy for abdominal pain, nausea and vomiting POSTOPERATIVE DIAGNOSES: 1. Moderate gastroduodenitis PROCEDURE PERFORMED BY: Vikram Carr GI NURSE: Shan SCOPE: Olympus videoendoscope. ASA CLASS: 2 PREOPERATIVE MEDICATIONS: Versed 3 mg, Fentanyl 100 mcg, Benadryl 50 mg I administered moderate sedation throughout this _8_ minutes procedure. An inde pendent trained observer pushed medications at my direction, and monitored the patient's level of consciousness and physiological status throughout. PROCEDURE IN DETAIL: After obtaining an informed consent, the patient was placed on left lateral decubitus position. The patient was then sedated with the above medications. A bite block was placed between her teeth. The endoscope was then passed through the oropharynx, into the esophagus, and through the stomach and pylorus up to the second and third part of the duodenum. The endoscope was then withdrawn. The 2nd and 3rd part of the duodenum were normal and the duodenal bulb and postbulbar area showed [id number] duodenitis The pre-pyloric area antrum and body showed moderate gastritis with hyperemia erythema. On retroflexion the fundus cardia and angularis were normal. Duodenal and gastric biopsies were obtained. The endoscope was then withdrawn into the distal esophagus There was no significant hiatal hernia and no significant esophagitis. The remaining distal and proximal esophagus and oropharynx were unremarkable The patient tolerated the procedure well without difficulty. COMPLICATIONS : None SPECIMENS: Duodenal biopsies Gastric biopsies DISPOSITION: Transfer back to the floor Stable PLAN: 1. Await for biopsy result 2. Will place pt on Protonix 40 mg bid p.o. 3. Carafate 1 g p.o. 4 times a day 4. DC aspirin NSAIDs smoking alcohol 5. Outpatient follow up with me in 4-6 weeks to review results and discuss further management VIKRAM CARR MD Jan 29, 2025 16:12
--- NOTE | 2025-01-29 17:41 | DVHPN2 ---
Subjective having some nausea Reviewed: Labs Changes from previous H/P or p: No Changes Gastrointestinal: Abdominal Pain Objective Vitals Vital Signs Date Time Temp Pulse Resp B/P (MAP) Pulse Ox O2 Delivery O2 Flow Rate FiO2 01/29/25 17:10 64 13 157/87 (110) 98 01/29/25 16:11 98.0 98.0 01/29/25 16:11 Nasal Cannula 3.0 01/29/25 16:11 94 Intake/Output Intake and Output 01/29/25 07:00 Intake Total 950 ml Balance 950 ml Intake Oral 0 ml IV Total 950 ml # Voids 8 General Appearance: Alert, Oriented X3, Cooperative, No acute distress Lungs: Clear to auscultation Cardiovascular: Regular rate, Normal S1, Normal S2 Abdomen: Other (tenderness) Psych/Mental Status: Mental status NL Medications Current Medications Medications Dose Ordered Sig/Antonietta Route Start Time Stop Time Status Last Admin Dose Admin Acetaminophen/ Hydrocodone Bitart 1 tab Q4HP PRN PO 01/25/25 15:45 01/28/25 15:05 1 TAB Ondansetron HCl 4 mg Q4HP PRN IV 01/25/25 15:45 01/28/25 16:18 4 MG Acetaminophen 650 mg Q6HP PRN PO 01/25/25 15:45 01/28/25 21:23 650 MG Morphine Sulfate 2 mg Q4HPRN PRN IV 01/25/25 15:45 Cancel Nitroglycerin 0.4 mg Q5MINP PRN SL 01/25/25 15:45 Morphine Sulfate 2 mg Q30M PRN IV 01/25/25 15:45 Cancel Ceftriaxone Sodium 50 ml @ 100 mls/hr DAILY@09 IV 01/26/25 09:00 01/29/25 09:23 100 MLS/HR Metoprolol Succinate 50 mg DAILY PO 01/26/25 10:00 01/29/25 09:24 50 MG Ferrous Sulfate 325 mg DAILY PO 01/26/25 10:00 01/28/25 09:11 325 MG Levetiracetam 750 mg BID PO 01/25/25 22:00 01/29/25 09:24 750 MG Paroxetine HCl 10 mg DAILY PO 01/26/25 10:00 01/29/25 09:23 10 MG Polyethylene Glycol 17 gm DAILY PO 01/25/25 15:45 01/29/25 09:25 17 GM Sennosides 8.6 mg QHSP PRN PO 01/25/25 15:45 01/26/25 22:11 8.6 MG Diagnostic Test (Pha) 1 strip ACHS 01/25/25 17:00 01/29/25 17:24 1 STRIP Insulin Human Regular ACHS SC 01/25/25 17:00 01/28/25 21:26 2 UNITS Dextrose 50 ml UD PRN IV 01/25/25 16:30 Hydralazine HCl 10 mg Q6HP PRN IV 01/25/25 16:45 01/28/25 11:36 10 MG Pantoprazole Sodium 40 mg DAILY IV 01/26/25 10:00 01/29/25 09:23 40 MG Lactated Ringer's 1,000 ml @ 125 mls/hr Q8H IV 01/26/25 11:15 01/29/25 04:49 125 MLS/HR Morphine Sulfate 2 mg Q4HPRN PRN IV 01/26/25 11:45 01/28/25 16:30 2 MG Morphine Sulfate 2 mg Q30M PRN IV 01/26/25 11:45 Docusate Sodium 100 mg BID PO 01/29/25 10:00 01/29/25 09:23 100 MG Lactulose 30 ml DAILY PO 01/29/25 10:00 01/29/25 09:23 30 ML Laboratory Results Laboratory Tests 01/27/25 06:22 01/28/25 07:15 Urinalysis Test 01/25/25 10:35 Urine Color Light-yellow (Yellow) Urine Clarity Hazy (Clear) H Urine pH 5.5 (5.0-9.0) Urine Specific [place] 1.029 (1.001-1.035) Urine Protein Negative (Negative) Urine Ketones Negative (Negative) Urine Blood Negative /uL (Negative) Urine Nitrite Negative (Negative) Urine Bilirubin Negative (Negative) Urine Urobilinogen Normal mg/dL (Negative) Urine Leukocyte Esterase 1+ /uL (Negative) Urine RBC 3 /hpf (0 - 4) Urine Microscopic WBC 1 /HPF (0-5) Urine Squamous Epithelial Cells Few /hpf (<5) Urine Bacteria Few /hpf (None Seen) H Urine Mucus Few (None Seen) Urine Glucose 4+ mg/dL (Normal) H Urine Test Negative (Negative) Assessment/Plan Assessment/Plan # Abdominal Pain - Possibly Pancreatitis - Full Liquids - Going for EGD today - IVF # DM2 A1c 5.8 # Psych Disorder- Stable # 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
[2025-01-29] MEDS: FLEET ENEMA(ADULT) 135 ML PR ONE (20:51)
[2025-01-30] VITALS (7 sets, daily range): BP systolic 144–181; BP diastolic 74–107; PULSE 67–96; RESP 14–18; TEMP 37; O2SAT 94–98
[2025-01-30] MEDS ORDERED: OMEP-434 PO (13:39)
--- NOTE | 2025-01-30 23:25 | DVHPN2 ---
Progress Note - Dictate Date Seen: Jan 30, 2025 (Late entry Time of visit 12 noon) Medical Necessity Reason Pt with a Central, PICC or Fol: No Subjective No new complaints Nausea is improving and abdominal pain is improving Patient tolerating diet EGD findings of gastroduodenitis discussed with patient vital signs Vital Sign Date Time Temp Pulse Resp B/P (MAP) Pulse Ox O2 Delivery O2 Flow Rate FiO2 01/30/25 16:53 97.9 81 16 155/94 (114) 98 97.9 01/30/25 08:10 Room Air* 0 21 Total Intake and Output 01/29/25 01/29/25 01/30/25 15:00 23:00 07:00 Intake Total 50 ml 1000 ml 300 ml Balance 50 ml 1000 ml 300 ml medications Current Medications Medications Dose Ordered Sig/[place] Route Start Time Stop Time Status Last Admin Dose Admin Morphine Sulfate 2 mg Q4HPRN PRN IV 01/25/25 15:45 Cancel Morphine Sulfate 2 mg Q30M PRN IV 01/25/25 15:45 Cancel objective General Appearance: Alert, Oriented X3, Cooperative, No acute distress Lungs: Clear to auscultation Cardiovascular: Regular rate, Normal S1, Normal S2 Abdomen: Other (tenderness) Psych/Mental Status: Mental status NL laboratory and microbiology Laboratory Tests 01/28/25 07:15 01/27/25 06:22 Test 01/28/25 07:15 Range/Units Serum Glucose 85 74-106 mg/dL Problems(with codes): (1) Gastroduodenitis (2) Elevated lipase (3) Intractable abdominal pain Prognosis PLAN: 1. Await for biopsy result 2. Will place pt on Protonix 40 mg bid p.o. 3. Carafate 1 g p.o. 4 times a day 4. DC aspirin NSAIDs smoking alcohol 5. Outpatient follow up with me in 4-6 weeks to review results and discuss further management 6.Discharge planning in progress today Dietary Evaluation Review Comments: 1. TPN if NPO > 7days 2. Advance diet as medically fesible 3. Continue current POC Expected Outcomes/Goals: To meet >75% estimated needs Fu 2-3 days Plan discussed with: Patient VIKRAM RUIZ MD Jan 30, 2025 23:25
== END 2025-01-30 17:00 | disposition home or self-care (01) | DRG 392 ==
LOC: ER 10:15 → OVERFLOW 15:36 → WEST WING 17:19
PROVIDERS: ADMIT Hospitalist; ATTEND Hospitalist
PROC: 0DB68ZX Excision of Stomach, Via Natural or Artificial Opening Endoscopic, Diagnostic (ICD-10-PCS; 2025-01-29)
PROC: 0DB98ZX Excision of Duodenum, Via Natural or Artificial Opening Endoscopic, Diagnostic (ICD-10-PCS; principal; 2025-01-29 15:54)
DX: K29.90 Gastroduodenitis, unspecified, without bleeding (principal); N39.0 Urinary tract infection, site not specified; K76.0 Fatty (change of) liver, not elsewhere classified; K29.70 Gastritis, unspecified, without bleeding; N20.0 Calculus of kidney; K59.00 Constipation, unspecified; I10 Essential (primary) hypertension; K29.80 Duodenitis without bleeding; E11.9 Type 2 diabetes mellitus without complications; E66.9 Obesity, unspecified; E78.5 Hyperlipidemia, unspecified; Z79.899 Other long term (current) drug therapy; Z90.49 Acquired absence of other specified parts of digestive tract; Z83.3 Family history of diabetes mellitus; Z82.49 Family history of ischemic heart disease and other diseases of the circulatory system; Z98.891 History of uterine scar from previous surgery; Z68.37 Body mass index [BMI] 37.0-37.9, adult
CPT/HCPCS: 36415; 43239; 74018; 74176; 74181; 78226; 80053; 80074; 81001; 81025; 82962; 83036; 83690; 85025; 85610; 85730; G0378; J1815; J2250; J2405; J2470

== ENCOUNTER 2025-03-19 11:48 | Outpatient (CLI) | payer BC ==
[~2025-03-19 11:48] MED LIST changes: +AMLO1TAB23 PO; +OMEP-434 PO
[2025-03-19 12:14] LABS: Hematocrit 46.6 % (36.0-46.0); Hemoglobin 15.0 g/dL (12.2-16.2); Mean Corpuscular Hemoglobin 27.3 pg (28.0-32.0); Mean Corpuscular Volume 84.5 fL (80.0-100.0); Nucleated Red Blood Cells % 0.1 %
[2025-03-19 12:46] LABS: Urine Protein, UAD 1+ (Negative)
[2025-03-19 13:10] LABS: Alkaline Phosphatase 77 U/L (46-116); Anion Gap 10 (5-15); BUN/Creatinine Ratio 12.0 (10.0-20.0); Blood Urea Nitrogen 11 mg/dL (9-23); Calcium 10.3 mg/dL (8.7-10.4); Carbon Dioxide 24 mmol/L (20-31); Potassium 4.1 mmol/L (3.5-5.1); Sodium 143 mmol/L (136-145); Total Protein 7.3 g/dL (5.7-8.2); Triglycerides 131 mg/dL (< 150)
[2025-03-19 13:11] LABS: Bilirubin, Total 0.3 mg/dL (0.2-1.0); HDL Cholesterol 53 mg/dL (40-59)
[2025-03-19 13:17] LABS: Alanine Aminotransferase 9 U/L (7-40); Albumin 4.9 g/dL (3.2-4.8); Chloride 109 mmol/L (98-107); Cholesterol 214 mg/dL (< 200); Glucose 113 mg/dL (74-106)
[2025-03-19 13:18] LABS: Microalb/Creat Ratio, Urine 68.0
== END 2025-03-19 17:00 | disposition home or self-care (01) ==
LOC: LAB 11:48
PROVIDERS: ATTEND Internal Medicine
DX: Z13.6 Encounter for screening for cardiovascular disorders (principal)
CPT/HCPCS: 36415; 80053; 80061; 81001; 82043; 82306; 82570; 82607; 84443; 85025